=== PATIENT | male | born 1985 | race Hispanic/Latino ===

== ENCOUNTER 2017-06-07 05:43 | Inpatient (IN) | payer OTHER ==
[~2017-06-07] VITALS: Ht 172.7 cm; Wt 149.7 kg
--- NOTE | 2017-06-07 07:03 | ED GENERAL ADULT ---
History of Present Illness General Chief Complaint: General Adult Stated Complaint: " TONSILS ARE SWOLLEN DIFF.BREATHING, SPO2 96% " Source: patient Exam Limitations: no limitations Vital Signs & Intake/Output Vital Signs & Intake/Output Vital Signs Date Time Temp Pulse Resp B/P B/P Pulse O2 O2 Flow FiO2 Mean Ox Delivery Rate 06/08 915 98.0 103 20 169/108 89 Nasal 2.0L Cannula 06/08 839 99.0 109 20 143/89 85 Room Air 06/07 0710 97.0 118 138/99 06/07 0554 98.1 114 139/71 96 Room Air Allergies Coded Allergies: No Known Allergies (06/07/17) Reconcile Medications No Known Home Medications Triage Note: RECEIVED PT TO [facility] B WITH CO SWOLLEN NECK/THROAT- STARTED 2 WEEKS AGO WENT AWAY THEN RETURNED WORSE - DIFFICULTY TALKING - SWALLOWING - DIFFICULTY SLEEPING - Triage Nurses Notes Reviewed? yes Onset: Gradual Duration: day(s): Timing: recent history HPI: 06/07/17 31-year-old male presents to the emergency department with severe sore throat. The patient states that he's had a sore throat develop over the past 4 days. He has trouble swallowing and barely gets liquids down. No significant past medical history. Strep test was positive. Past History Travel History Traveled to [place] past 21 day No Medical History Any Pertinent Medical History? see below for history Neurological: NONE EENT: NONE Cardiovascular: NONE Respiratory: NONE Gastrointestinal: NONE Hepatic: NONE Renal: NONE Musculoskeletal: NONE Psychiatric: NONE Endocrine: NONE Surgical History Surgical History: non-contributory Psychosocial History What is your primary language Hungarian Tobacco Use: Current Daily Use Daily Tobacco Use Amount/Type: => 5 Cigarettes daily Family History Hx Contributory? No Review of Systems Review of Systems Constitutional: Denies: fever. EENTM: Denies: visual changes. Respiratory: Denies: short of breath. Cardiovascular: Denies: chest pain. GI: Denies: abdominal pain. Genitourinary: Reports: no symptoms. Musculoskeletal: Reports: no symptoms. Skin: Reports: no symptoms. Neurological/Psychological: Reports: no symptoms. Hematologic/Endocrine: Reports: no symptoms. Immunologic/Allergic: Reports: no symptoms. Physical Exam Physical Exam General Appearance: alert, awake, anxious, moderate distress Head: atraumatic, normal appearance Eyes: Bilateral: normal appearance, PERRL, EOMI. Ears, Nose, Throat: pharyngeal erythema, tonsillar swelling Neck: supple Respiratory: normal breath sounds, chest non-tender, no respiratory distress Cardiovascular: regular rate/rhythm Peripheral Pulses: 4+ radial (R), 4+ radial (L) Gastrointestinal: soft, non-tender Back: normal range of motion Extremities: no edema Neurologic/Psych: no motor/sensory deficits, awake, alert, oriented x 3 Skin: intact, normal color, warm/dry Core Measures ACS in differential dx? No CVA/TIA Diagnosis: No Sepsis Present: No Sepsis Focused Exam Completed? No Progress Differential Diagnoses I considered the following diagnoses in my evaluation of the patient: [ Retropharyngeal abscess, peritonsillar abscess, strep pharyngitis, angioedema] Plan of Care: Orders Procedure Date/time Status Full Liquid Diet 06/07 L Active Patient Data 06/07 0935 Active ED Holding Orders 06/07 09 Active ED Holding Orders 06/07 09 Active Admit to inpatient 06/07 0926 Active Vital Signs 06/07 09 Active Code Status 06/07 09 Active Add-on Test (ER Only) 06/07 0914 Active MONOSPOT TEST 06/07 0709 Complete COMPREHENSIVE METABOLIC PANEL 06/07 0709 Complete CBC WITHOUT DIFFERENTIAL 06/07 0709 Complete THROAT CULTURE W/QUICK STREP 06/07 0641 Active Laboratory Tests 06/07/17 0722: Anion Gap 15, Estimated GFR > 60, BUN/Creatinine Ratio 13.3, Glucose 111 H, Calcium 9.4, Total Bilirubin 0.7, AST 17, ALT 26, Alkaline Phosphatase 98, Total Protein 8.8 H, Albumin 4.2, Globulin 4.6 H, Albumin/Globulin Ratio 0.9 L, CBC w Diff MAN DIFF ORDERED, RBC 5.49, MCV 80.5, MCH 26.1 L, MCHC 32.5 L, RDW 16.1 H, MPV 7.9, Gran % 79.7 H, Lymphocytes % 9.2 L, Monocytes % 10.8 H, Eosinophils % 0.1, Basophils % 0.2, Absolute Granulocytes 23.0 H, Segmented Neutrophils 74, Band Neutrophils 3, Absolute Lymphocytes 2.7, Lymphocytes 18 L, Monocytes 4, Absolute Monocytes 3.1 H, Eosinophils 1, Absolute Eosinophils 0, Absolute Basophils 0.1, Platelet Estimate INCREASED, Normocytic RBCs VERIFIED, Normochromic RBCs VERIFIED 06/07/17 0709: Infectious [place] Titer NEGATIVE Initial ED EKG: normal intervals Departure Departure Disposition: STILL A PATIENT Condition: Stable Clinical Impression Primary Impression: Pharyngitis Referrals: Patient Has No Primary Care Dr (PCP/Family) Departure Forms: Customer Survey General Discharge Information Prescriptions: Current Visit Scripts No Known Home Medications Comments 06/07/17 The patient is being admitted to the hospital for IV antibiotics and ENT consultation. I spoke to Dr. Davina Lagunas who will see the patient today in the hospital. PATIENT: HIRAM HILLMAN PRESENT AGE: 31 PATIENT ACCOUNT NO: [id number] : 85 LOCATION: [facility] ORDERING PHYSICIAN: Darell Le MD SERVICE DATE: 06/07/17 EXAM TYPE: CAT - CT NECK W IV CONTRAST EXAMINATION: CT SOFT TISSUE NECK WITH CONTRAST CLINICAL INFORMATION: Sore throat for 2 weeks. Assess for retropharyngeal abscess. COMPARISON: None. TECHNIQUE: Following the intravenous administration of 100 mL of Ultravist 300, helical imaging was performed in the axial plane with generation of coronal and sagittal reformatted images. Imaging is slightly degraded by patient swallowing motion artifact. DLP: 510.5 mGy-cm. FINDINGS: There is asymmetric fullness of the palatine tonsils, larger on the left. There is an area of relative low attenuation in the left tonsil which measures 1.6 x 1.6 x 2.1 cm, which may be consistent with an evolving abscess. There is mild distortion of the airway in the oropharynx. There are multiple enlarged lymph nodes in the neck bilaterally, most prominent on the left in the level IIA/IIB region measuring up to 3 cm. The parotid glands are homogeneous in attenuation. The submandibular glands are normal. No The laryngeal structures are normal. The parapharyngeal fat is preserved. There is normal opacification of the vascular structures. No other extra mucosal soft tissue mass or fluid collection is seen. No retropharyngeal fluid collection is seen. The thyroid gland is normal. The superior mediastinum is unremarkable. The lung apices are clear. The mastoid air cells are well-aerated. There is complete opacification of the right maxillary sinus with thickened sinuses díaz consistent with chronic disease. There is also mucoperiosteal thickening in the bilateral ethmoid sinuses. The temporomandibular joints are normal. No periapical disease is identified. There are no acute osseous abnormalities. The imaged portions of the brain parenchyma are unremarkable. IMPRESSION: 1. The palatine tonsils are enlarged, more prominent on the left. There may be a developing abscess in the left palatine tonsil. In addition there is significant bilateral cervical lymphadenopathy, most prominent on the left. 2. There is complete opacification of the right maxillary sinus with thickened sinus díaz, consistent with chronic sinus disease. DICTATED BY: Keith Hemphill MD DATE/TIME DICTATED:06/07/17824 CARPET REPAIRER:DAVE DATE/TIME TRANSCRIBED:06/07/17824 CONFIDENTIAL, DO NOT COPY WITHOUT APPROPRIATE AUTHORIZATION. <Electronically signed in Other Vendor System> SIGNED BY: Keith Hemphill MD 06/07/17854 Admission Note Spoke With: Mikala Guadarrama MD Documentation of Exam: Documentation of any treatments & extenuating circumstances including Concerns Regarding Discharge (functional status, medication knowledge or non-compliance, living conditions, etc.) that warrant an admission rather than observation: [ Patient needs admission for IV antibiotics and ENT consultation] Critical Care Note Critical Care Note Critical Care Time: 30-74 min
[2017-06-07 07:36] LABS: ABSOLUTE BASOPHIL COUNT 0.1 /CUMM (0.0-0.2); ABSOLUTE EOSINOPHIL COUNT 0 /CUMM (0.0-0.7); ABSOLUTE LYMPH COUNT 2.7 /CUMM (1.2-3.4); ABSOLUTE MONOCYTE COUNT 3.1 /CUMM (0.10-0.60); BASOPHIL % 0.2 % (0.0-2.0); EOSINOPHIL % 0.1 % (0-5); GRANULOCYTE % 79.7 % (42.2-75.2); HEMATOCRIT 44.1 % (42-52); MEAN CORPUSCULAR HGB 26.1 PG (27.0-31.0); MEAN CORPUSCULAR HGB CONC 32.5 G/DL (33.0-37.0); MEAN CORPUSCULAR VOLUME 80.5 FL (80.0-94.0); MEAN PLATELET VOLUME 7.9 FL (7.4-10.4); PLATELET COUNT 473 /CUMM (130-400); RBC DISTRIBUTION WIDTH 16.1 % (11.5-14.5); RED BLOOD CELL CT 5.49 /CUMM (4.70-6.10); WHITE BLOOD CELL COUNT 28.9 /CUMM (4.8-10.8)
--- NOTE | 2017-06-07 08:55 | CT SCAN REPORT ---
EXAMINATION: CT SOFT TISSUE NECK WITH CONTRAST CLINICAL INFORMATION: Sore throat for 2 weeks. Assess for retropharyngeal abscess. COMPARISON: None. TECHNIQUE: Following the intravenous administration of 100 mL of Ultravist 300, helical imaging was performed in the axial plane with generation of coronal and sagittal reformatted images. Imaging is slightly degraded by patient swallowing motion artifact. DLP: 510.5 mGy-cm. FINDINGS: There is asymmetric fullness of the palatine tonsils, larger on the left. There is an area of relative low attenuation in the left tonsil which measures 1.6 x 1.6 x 2.1 cm, which may be consistent with an evolving abscess. There is mild distortion of the airway in the oropharynx. There are multiple enlarged lymph nodes in the neck bilaterally, most prominent on the left in the level IIA/IIB region measuring up to 3 cm. The parotid glands are homogeneous in attenuation. The submandibular glands are normal. No The laryngeal structures are normal. The parapharyngeal fat is preserved. There is normal opacification of the vascular structures. No other extra mucosal soft tissue mass or fluid collection is seen. No retropharyngeal fluid collection is seen. The thyroid gland is normal. The superior mediastinum is unremarkable. The lung apices are clear. The mastoid air cells are well-aerated. There is complete opacification of the right maxillary sinus with thickened sinuses díaz consistent with chronic disease. There is also mucoperiosteal thickening in the bilateral ethmoid sinuses. The temporomandibular joints are normal. No periapical disease is identified. There are no acute osseous abnormalities. The imaged portions of the brain parenchyma are unremarkable. IMPRESSION: 1. The palatine tonsils are enlarged, more prominent on the left. There may be a developing abscess in the left palatine tonsil. In addition there is significant bilateral cervical lymphadenopathy, most prominent on the left. 2. There is complete opacification of the right maxillary sinus with thickened sinus díaz, consistent with chronic sinus disease.
--- NOTE | 2017-06-07 09:45 | History & Physical ---
Ramila Bunch 06/07/17 0941: General Information and HPI MD Statement: I have seen and personally examined HIRAM HILLMAN and documented this H&P. The patient is a 31 year old M who presented with a patient stated chief complaint of [worsening throat pain]. Source of Information: patient Exam Limitations: no limitations History of Present Illness: 31-year-old male with no past medical history presents to the ER with chief complaint pain, andswelling in his neck that started about 1 week ago with worsening difficulty swallowing as well as sleeping. According to the patient he first developed a sore throat which was associated with purulent discharge and his tonsillar area on May 07. He said that his symptoms subsided a couple of days later without taking any medications or seeing a primary care physician. It was not until last Wednesday that he started to experience worsening sore throat, difficulty swallowing and pain on swallowing. He also started to notice swelling on the left side of his neck which progressively got worse Wednesday into Wednesday. He also endorses having difficulty taking her catching a deep breath and has not slept in almost 3 days. He does endorse mild pooling of saliva in his mouth. He denies any fevers, chills. He states that he took Motrin but with little effect. He does endorse having his daughter who was sick with an upper respiratory tract infection a few weeks ago. Patient denies any chest pain, shortness of breath, nausea, vomiting , diarrhea, constipation, abdominal pain, headache, any sinusitis-like symptoms. Allergies/Medications Allergies: Coded Allergies: No Known Allergies (06/07/17) Home Med list No Known Home Medications Past History Travel History Traveled to [place] past 21 day No Medical History Neurological: NONE EENT: NONE Cardiovascular: NONE Respiratory: NONE Gastrointestinal: NONE Hepatic: NONE Renal: NONE Musculoskeletal: NONE Psychiatric: NONE Endocrine: NONE Surgical History Surgical History: none Past Family/Social History Family History Relations & Conditions if any MOTHER FH: breast cancer FATHER FH: diabetes mellitus BROTHER FH: hypothyroidism Psychosocial History Who Do You Live With? self ETOH Use: denies use Illicit Drug Use: denies illicit drug use Functional Ability ADLs Independent: dressing, eating, toileting, bathing. Sexual History Sexually Active Yes # of partners 1 Sexual Orientation Heterosexual Employment History Employment Employed Review of Systems Review of Systems Constitutional: Denies: chills, fever, malaise, weakness. EENTM: Denies: visual changes. Cardiovascular: Denies: chest pain, orthopena, palpitations, peripheral edema. Respiratory: Reports: stridor. Denies: cough, orthopnea, short of breath, wheezing. GI: Denies: abdominal pain, constipation, diarrhea, nausea, vomiting. Genitourinary: Reports: no symptoms. Musculoskeletal: Reports: no symptoms. Neurological/Psychological: Denies: headache, numbness, tingling, tremors. Immunologic/Allergic: Reports: lymphadenopathy. Exam & Diagnostic Data Last 24 Hrs of Vital Signs/I&O Vital Signs Date Time Temp Pulse Resp B/P B/P Pulse O2 O2 Flow FiO2 Mean Ox Delivery Rate 06/08 915 98.0 103 20 169/108 89 Nasal 2.0L Cannula 06/07 0840 99.0 109 20 143/89 85 Room Air 06/07 0710 97.0 118 138/99 06/07 0554 98.1 114 139/71 96 Room Air Last 24 Hrs of Labs/Johnny: Laboratory Tests 06/07/17 0722: Anion Gap 15, Estimated GFR > 60, BUN/Creatinine Ratio 13.3, Glucose 111 H, Calcium 9.4, Total Bilirubin 0.7, AST 17, ALT 26, Alkaline Phosphatase 98, Total Protein 8.8 H, Albumin 4.2, Globulin 4.6 H, Albumin/Globulin Ratio 0.9 L, CBC w Diff MAN DIFF ORDERED, RBC 5.49, MCV 80.5, MCH 26.1 L, MCHC 32.5 L, RDW 16.1 H, MPV 7.9, Gran % 79.7 H, Lymphocytes % 9.2 L, Monocytes % 10.8 H, Eosinophils % 0.1, Basophils % 0.2, Absolute Granulocytes 23.0 H, Segmented Neutrophils 74, Band Neutrophils 3, Absolute Lymphocytes 2.7, Lymphocytes 18 L, Monocytes 4, Absolute Monocytes 3.1 H, Eosinophils 1, Absolute Eosinophils 0, Absolute Basophils 0.1, Platelet Estimate INCREASED, Normocytic RBCs VERIFIED, Normochromic RBCs VERIFIED 06/07/17 0709: Infectious [place] Titer NEGATIVE Diagnostic Data Other Results SERVICE DATE: 06/07/17 EXAM TYPE: CAT - CT NECK W IV CONTRAST FINDINGS: There is asymmetric fullness of the palatine tonsils, larger on the left. There is an area of relative low attenuation in the left tonsil which measures 1.6 x 1.6 x 2.1 cm, which may be consistent with an evolving abscess. There is mild distortion of the airway in the oropharynx. There are multiple enlarged lymph nodes in the neck bilaterally, most prominent on the left in the level IIA/IIB region measuring up to 3 cm. The parotid glands are homogeneous in attenuation. The submandibular glands are normal. No The laryngeal structures are normal. The parapharyngeal fat is preserved. There is normal opacification of the vascular structures. No other extra mucosal soft tissue mass or fluid collection is seen. No retropharyngeal fluid collection is seen. The thyroid gland is normal. The superior mediastinum is unremarkable. The lung apices are clear. The mastoid air cells are well-aerated. There is complete opacification of the right maxillary sinus with thickened sinuses díaz consistent with chronic disease. There is also mucoperiosteal thickening in the bilateral ethmoid sinuses. The temporomandibular joints are normal. No periapical disease is identified. There are no acute osseous abnormalities. The imaged portions of the brain parenchyma are unremarkable. IMPRESSION: 1. The palatine tonsils are enlarged, more prominent on the left. There may be a developing abscess in the left palatine tonsil. In addition there is significant bilateral cervical lymphadenopathy, most prominent on the left. 2. There is complete opacification of the right maxillary sinus with thickened sinus díaz, consistent with chronic sinus disease. Assessment/Plan Assessment: 31-year-old male with no past medical history presents to the ER with chief complaint pain in his leg quite throughout that started about 2 weeks ago with worsening difficulty swallowing as well as sleeping. Vitals at the time of admission blood pressure 139/71, respiratory rate of 20, T -max of 99 tachycardic to 114 with an O2 saturation of 85 on room air. Labs pertinent for leukocytosis with a white blood cell count of 28,900, H&H 14.3/44.1 and MCV of 80.5 with a platelet count of 473,000. Serum chemistries reveal a sodium of 139, potassium 4.4, bicarb of 28, anion gap of 15, BUN 8 with a creatinine of 0.6. LFTs unremarkable with an AST/ALT of 70/26, alk phos of 98. Infectious mono titer was negative. CT of the neck showed enlarged palatine tonsils, more prominent on the left with developing abscess in the left palatine tonsil with significant bilateral cervical lymphadenopathy left more so than right. There is also complete opacification of the right maxillary sinus with thickened sinus díaz consistent with chronic sinus disease. The ER patient received 50 mg of IV Decadron 1 and ampicillin 3000 mg IV 1. Assessment and plan Admit patient to ICU for closer monitoring. # Sepsis and acute hypoxemic repsiratory failure 2/2 peritonsillar abscess from GB Strep We will keep patient n.p.o. for now in the event ENT decides to do I&D at bedside. Spoke with Dr. Larry will be here this afternoon to evaluate the patient. Meanwhile maintain on aspiration precautions, provide supplemental oxygen to maintain saturations greater than 95% - Start IV Unasyn 3000 mg every 6 hrs Of note patient received steroids in the ER however it is more so for pain and there is limited data to suggest that it helps with the inflammation For now we will continue on dexamethasone 4 mg q. 8 IV Continue to monitor vitals every hour, and watch for signs of impending respiratory failure F/U BCX2, and lactic acid Follow-up ENT recommendation DVT prophylaxis On Alps given anticipation of I&D by ENT Diet N.p.o. CODE STATUS Full As Ranked By This Provider Problem List: 1. Peritonsillar abscess Core Measures/Misc (11/08) Acute Coronary Syndrome ACS Diagnosis: No Congestive Heart Failure Congestive Heart Failure Diagnosis No Cerebrovascular Accident CVA/TIA Diagnosis: No VTE (View Protocol) VTE Risk Factors Age>40 No Mechanical VTE Prophylaxis d/t N/A MechProphylax Ordered No VTE Pharm Prophylaxis d/t NA PharmProphylax ordered Sepsis (View protocol) Sepsis Present: No Resident Review Statement Resident Statement: admitted by resident Liu Berkowitz MD 06/07/17 1354: Attending MD Review Statement Attending Statement Attending MD Statement: examined this patient, discuss w/resident/PA/NEWBORN HEARING SCREENER, agreed w/resident/PA/NEWBORN HEARING SCREENER, reviewed EMR data (avail), discussed with nursing, reviewed images, amended to note Attending Assessment/Plan: The patient is a 31 yo male w/o significant PMH who presented in the ED with throat pain and swelling that began 05/07 and subsided. For the last 6 days he has had worsening of the throat pain and began having difficulty swallowing. He also was having difficulty speaking and swallowing his saliva. Some dyspnea noted. He denied fever or chills, chest pain or palpitations. In the ED he was noted to have purulent tonsils and + strep with CT showing early tonsillar abscess. At the time of my exam he had some stridor and had difficult time speaking and swallowing. He had been given Unasyn and steroids in the ED. ENT has not yet seen. Physical Exam: VS: T 98.0-99, P 118-103, R 20, BP 139/71-169/108, PO 96-85-89% on 2L HEENT: eyes- PERRLA, EOMI michael- + significant posterior pharyngeal swelling/erythema, tonsillar swelling with exudate Neck: + cervical adenopathy bilateral Chest: some inspiratory stridor, however lungs clear Cor: tach, regular, nl S1, S2 w/o murm Abd: BS+, soft, NT Ext: no edema, good capillary filling Neuro: alert & oriented x 3, non-focal exam Labs/Tests- as above Impression/Plan: #Strep Pharyngitis/Tonsillitis with Early Left Tonsillar Abscess- on CT. At the time of my exam has inspiratory stridor and hypoxemia. Concern regarding impending airway obstruction. He has received IV Unasyn and steroids in ED. Plan: Admit to ICU for close respiratory monitoring - if decompensates - may need trach. Stat/Urgent ENT evaluation- ? drainage. Continue Unasyn. Check Lactate/Cultures- r/o sepsis. Check EKG, no heparin (was initially ordered, but not given)- use ALPS. #Acute Hypoxic Respiratory Failure- note pulse ox decreased due to partial airway occlusion. Plan: Agree with nasal oxygen and close monitoring. #Leukocytosis- WBC 28K- c/w significant infection. Plan: Will follow WBC on antibiotics.
[2017-06-07 10:34] LABS: PT 16.9 SEC (9.4-12.5)
--- NOTE | 2017-06-07 12:46 | RADIOLOGY REPORT ---
EXAMINATION: XR PORTABLE CHEST CLINICAL INFORMATION: Preop for drainage of peritonsillar abscess. Rule out pneumonia. COMPARISON: None TECHNIQUE: Portable AP semierect view of the chest was obtained. FINDINGS: EKG leads overlie the chest. The cardiomediastinal silhouette is borderline enlarged. Low lung volumes are seen with crowding of the bronchovascular lung markings in the right lung base. No focal consolidation, effusion or pneumothorax is seen. Bony structures are unremarkable. IMPRESSION: Low lung volumes. Borderline cardiomegaly. No acute pulmonary process.
--- NOTE | 2017-06-07 13:54 | Admission Certification ---
Admission Certification Certification Statement - As attending physician, I certify that at the time of - admission, based on clinical presentation, severity of - symptoms, need for further diagnostic testing and - therapeutic interventions, and risk of adverse outcomes - without in-hospital treatment, in my clinical assessment, - this patient requires an acute hospital stay for a minimum - of two nights or longer. I have also considered psychsocial - factors such as support system, advanced age, financial - issues, cognitive issues, and failed out-patient treatments, - past re-admission history, safety of patient, and lack of - compliance as applicable. Specific rationale supporting this admission is: The patient presents with throat pain and swelling, respiratory stridor, early tonsillar abscess on CT with significant neck swelling. WBC 28K, + strep culture , low oxygen sat. Needs ICU admit for close respiratory observation - ENT consult RIAN- ? drainage, IV Unasyn, Steroids, oxygen.
--- NOTE | 2017-06-07 15:02 | Cons- Ear,Nose&Throat ---
General Information and HPI Consulting Request Date of Consult: 06/07/17 Requested By: Liu Berkowitz MD Reason for Consult: Throat pain and swelling Source of Information: patient Exam Limitations: no limitations History of Present Illness: 31-year-old male with no past medical history presented to ER earlier this morning with throat pain and swelling. Throat pain started about a week ago and has gotten progressively worse. Patient developed difficulty with swallowing. Over the last 3 days she had also difficulty sleeping due to throat obstruction. She also noticed to have neck swelling, tenderness and pain. According to the patient he first developed a sore throat which was associated with purulent discharge and his tonsillar area on May 07. He said that his symptoms subsided a couple of days later without taking any medications or seeing a primary care physician. It was not until last Wednesday that he started to experience recurrence sore throat worsening, followed by difficulty swallowing and pain on swallowing. He also started to notice swelling on the left side of his neck which progressively got worse Wednesday into Wednesday. He also endorses having difficulty taking her catching a deep breath and has not slept in almost 3 days. He does endorse mild pooling of saliva in his mouth. He denies any fevers, chills. He states that he took Motrin but with little effect. He does endorse having his daughter who was sick with an upper respiratory tract infection a few weeks ago. Patient denies any chest pain, shortness of breath, nausea, vomiting, diarrhea, constipation, abdominal pain, headache, any sinusitis-like symptoms. Allergies/Medications Allergies: Coded Allergies: No Known Allergies (06/07/17) Home Med List: No Known Home Medications Current Medications: Current Medications Sig/[place] Start time Last Medication Dose Route Stop Time Status Admin Acetaminophen 1,000 MG Q6P PRN 06/07 1045 AC N/A 1 UNIT IV Ampicillin Sodium/ 3,000 MG Q6H 06/07 1300 AC Sulbactam Sodium IV Sodium Chloride 100 ML Ampicillin Sodium/ 0 .STK-MED ONE 06/07 0735 DC Sulbactam Sodium .ROUTE Ampicillin Sodium/ 3,000 MG ONCE ONE 06/07 0730 DC 06/07 Sulbactam Sodium IV 06/07 0759 0748 Sodium Chloride 100 ML Dexamethasone 4 MG Q8 06/07 1400 AC Dextrose/Water 50 ML IV Dexamethasone 15 MG ONCE ONE 06/07 0700 DC 06/07 IV 06/07 0701 0659 Heparin Sodium 5,000 UNIT Q8 06/07 1400 CAN (Porcine) SC Sodium Chloride 1,000 ML Q10H 06/07 1100 AC 06/07 IV 06/08 1659 1120 Past History Medical History Neurological: NONE EENT: NONE Cardiovascular: NONE Respiratory: NONE Gastrointestinal: NONE Hepatic: NONE Renal: NONE Musculoskeletal: NONE Psychiatric: NONE Endocrine: NONE Surgical History Pertinent Surgical History: 1 Family History Relations & Conditions If Any: MOTHER FH: breast cancer FATHER FH: diabetes mellitus BROTHER FH: hypothyroidism Psychosocial History Who Do You Live With? self Primary Language: Vincentian ETOH Use: denies use Illicit Drug Use: denies illicit drug use Functional Ability ADLs Independent: dressing, eating, toileting, bathing. Employment History Employment: Employed Review of Systems Review of Systems: Noncontributory Exam & Diagnostic Data Vital Signs and I&O Vital Signs Date Time Temp Pulse Resp B/P B/P Pulse O2 O2 Flow FiO2 Mean Ox Delivery Rate 06/07 1141 160/60 06/07 1109 97.0 110 20 96 Nasal 2.0L Cannula 06/07 0916 98.0 103 20 169/108 89 Nasal 2.0L Cannula 06/07 0840 99.0 109 20 143/89 85 Room Air 06/07 0710 97.0 118 138/99 06/07 0554 98.1 114 139/71 96 Room Air Physical Exam: Well-developed, well-nourished male with mild distress Head: normocephalic, atraumatic Ears: Canals- clear; Tympanic Membranes- clear Nose: Septum-related to the left ; Turbinates- hypertrophy, edema, erythema ; Airway-purulent drainage on the right Oral cavity: Mucosa- clear Oropharynx: Tonsils 4+, kissing, exudates, erythema ; Posterior wall-unable to visualize Neck: Enlarged upper cervical lymph nodes, mildly tender Fiberoptic laryngoscopy: Fiberoptic scope inserted via the right nostril Nasal fossa, rightpurulent drainage; turbinates-edema, erythema Nasopharynx: Septum with hypertrophy with almost complete obstruction of the nasopharynx Hypopharynx: Base of tongueclear; vallecularclear ; Piriform sinuses-Clear; posterior wall-clear; mucosa-clear Larynx: Epiglottis- intact; vocal cords-mobile; posterior commissure-clear Esophageal inlet-intact CBC: WBC 28.9 CT neck 06/07/2017: 1. Tonsils markedly enlarged ; asymmetric fullness of the palatine tonsils, larger on the left. There is an area of relative low attenuation in the left tonsil which measures 1.6 x 1.6 x 2.1 cm, which may be consistent with an evolving abscess. There is mild distortion of the airway in the oropharynx. 2. Adenoid hypertrophy with obstruction of the nasopharynx 3. Bilateral cervical adenopathy, most prominent on the left in the level IIA/ IIB region, up to 3 cm. 4. The parapharyngeal fat is preserved. No retropharyngeal fluid collection is seen. 5. Larynx is normal with patent airway 6. complete opacification of the right maxillary sinus with mucosal thickening within the right maxillary sinus consistent with chronic disease. There is also mucoperiosteal thickening in the bilateral ethmoid sinuses. Assessment/Plan Assessment/Plan Assessment/Plan Assessment: 1. Acute streptococcal tonsillitis 2. Tonsil and adenoid hypertrophy with obstruction of the nasopharyngeal and oropharyngeal airway 3. Acute sinusitis - right maxillary and bilateral ethmoid 4. Reactive cervical adenitis 5. Odynophagia 6. Dehydration 7. Sepsis 8. Obstructive sleep apnea secondary to tonsil and adenoid hypertrophy Plan 1. Admit patient to ICU for airway monitoring. 2. IV Unasyn 3 mg every 6 3. IV Decadron 4 mg every 8 4. Afrin nasal spray 3 puffs each nostril twice a day 3 days 5. CPAP to help with the upper airway obstruction 6. Monitor WBC 7. Monitor for possible evolving abscess on the left tonsil 8. Patient may have ice chips, if tolerates advance to clear liquids Consult Acknowledgment - Thank you for your consult request.
[2017-06-07 16:00] VITALS: BP 118/74
[2017-06-08] VITALS: BP 118/74
[2017-06-08 03:40] LABS: ABSOLUTE BASOPHIL COUNT 0 /CUMM (0.0-0.2); ABSOLUTE EOSINOPHIL COUNT 0 /CUMM (0.0-0.7); ABSOLUTE GRANULOCYTE CT 23.1 /CUMM (1.4-6.5); ABSOLUTE LYMPH COUNT 1.9 /CUMM (1.2-3.4); ABSOLUTE MONOCYTE COUNT 0.6 /CUMM (0.10-0.60); BASOPHIL % 0 % (0.0-2.0); EOSINOPHIL % 0.1 % (0-5); GRANULOCYTE % 89.9 % (42.2-75.2); HEMATOCRIT 44.5 % (42-52); MEAN CORPUSCULAR HGB 25.5 PG (27.0-31.0); MEAN CORPUSCULAR HGB CONC 31.3 G/DL (33.0-37.0); MEAN CORPUSCULAR VOLUME 81.3 FL (80.0-94.0); MEAN PLATELET VOLUME 8.2 FL (7.4-10.4); PLATELET COUNT 516 /CUMM (130-400); RBC DISTRIBUTION WIDTH 15.9 % (11.5-14.5); RED BLOOD CELL CT 5.48 /CUMM (4.70-6.10); WHITE BLOOD CELL COUNT 25.7 /CUMM (4.8-10.8)
--- NOTE | 2017-06-08 07:48 | PN- Housestaff ---
Yael SINGH,[facility] 06/08/17 0748: Subjective Follow-up For: 1. Sepsis from acute streptococcal tonsillitis 2. Tonsil and adenoid hypertrophy with obstruction of the nasopharyngeal and oropharyngeal airway 3. Acute sinusitis - right maxillary and bilateral ethmoid 4. Reactive cervical adenitis 5. Odynophagia 6. YE secondary to tonsil and adenoid hypertrophy Tele-Events Since Last Visit: No events overnight Subjective: Mr. del cid states that he has some improvement in his symptoms, throat pain is improved and he is able to swallow without difficulty, was able to eat his breakfast this morning. Still was unable to sleep last night because of the shortness of breath. Denies any fever/chills. Review of Systems Constitutional: Reports: no symptoms. EENTM: Reports: throat pain, throat swelling. Cardiovascular: Reports: no symptoms. Respiratory: Reports: short of breath. Gastrointestinal: Reports: no symptoms. Genitourinary: Reports: no symptoms. Musculoskeletal: Reports: no symptoms. Skin: Reports: no symptoms. Neurological/Psychological: Reports: no symptoms. Hematologic/Endocrine: Reports: no symptoms. Immunologic/Allergic: Reports: no symptoms. Objective Last 24 Hrs of Vital Signs/I&O Vital Signs Date Time Temp Pulse Resp B/P B/P Pulse O2 O2 Flow FiO2 Mean Ox Delivery Rate 06/08 1200 94 Room Air Room Air 06/08 0800 95 Room Air Room Air 06/08 0800 98.1 84 24 100/80 97 Room Air Room Air 06/08 0400 94 Nasal 3.0L Cannula 06/08 0000 97 Aerosol 35% Mask 06/08 0000 9834.0 80 32 118/74 97 Aerosol 35% Mask 06/07 2000 99 Nasal 2.0L Cannula 06/07 1600 97.8 122 20 118/74 95 Nasal 2.0L Cannula 06/07 1600 95 Nasal 2.0L Cannula 06/07 1330 95 Nasal 2.0L Cannula Intake & Output 06/08 1600 06/08 0800 06/08 0000 Intake Total 1664 1580 Output Total 1100 900 Balance 564 680 Intake, IV 824 1100 Intake, Oral 840 480 Output, Urine 1100 900 Physical Exam General Appearance: Alert, Oriented X3, Cooperative, No Acute Distress Skin: No Rashes, No Breakdown HEENT: Atraumatic, PERRLA, EOMI, Mucous Membr. moist/pink, enlarged and erythematous tonsils without any purulent drainage Neck: Supple, No JVD Cardiovascular: Regular Rate, Normal S1, Normal S2 Lungs: Normal Air Movement, Mild wheezing bilaterally Abdomen: Normal Bowel Sounds, Soft, No Tenderness Extremities: No Clubbing, No Cyanosis, No Edema Current Medications: Current Medications Sig/[place] Start time Last Medication Dose Route Stop Time Status Admin Acetaminophen 1,000 MG Q6P PRN 06/07 1045 AC N/A 1 UNIT IV Ampicillin Sodium/ 3,000 MG Q6H 06/07 2200 AC 06/08 Sulbactam Sodium IV 1018 Sodium Chloride 100 ML Ampicillin Sodium/ 3,000 MG Q6H 06/07 1300 DC 06/07 Sulbactam Sodium IV 1637 Sodium Chloride 100 ML Dexamethasone 4 MG Q8 06/07 1400 AC 06/08 Dextrose/Water 50 ML IV 0514 Heparin Sodium/ 25,000 UNIT Q24H 06/08 1015 DC Dextrose IV Dextrose/Water 500 ML Influenza Virus 0.5 ML ONCE ONE 06/07 2115 DC Vaccine IM 06/07 211 Oxymetazoline HCl 2 SPRAY BID 06/07 2100 AC 06/07 POLO 1642 Sodium Chloride 1,000 ML Q10H 06/07 1100 AC 06/07 IV 06/08 1659 2145 Last 24 Hrs of Lab/Johnny Results Last 24 Hrs of Labs/Mics: Laboratory Tests 06/08/17 0320: Troponin I < 0.01 06/08/17 0320: Anion Gap 14, Estimated GFR > 60, BUN/Creatinine Ratio 26.0 H, CBC w Diff MAN DIFF ORDERED, RBC 5.48, MCV 81.3, MCH 25.5 L, MCHC 31.3 L, RDW 15.9 H, MPV 8.2, Gran % 89.9 H, Lymphocytes % 7.5 L, Monocytes % 2.5, Eosinophils % 0.1, Basophils % 0, Absolute Granulocytes 23.1 H, Segmented Neutrophils 78 H, Band Neutrophils 6 H, Absolute Lymphocytes 1.9, Lymphocytes 10 L, Monocytes 4, Absolute Monocytes 0.6, Absolute Eosinophils 0, Absolute Basophils 0, Metamyelocytes 2 H, Platelet Estimate ADEQUATE, Normocytic RBCs VERIFIED, Normochromic RBCs VERIFIED 06/07/17 1600: Lactic Acid 0.9 Microbiology 06/07 1615 BLOOD: Blood Culture - RES 06/07 1353 BLOOD: Blood Culture - CAN Cancelled: SPECIMEN NOT RECEIVED IN LABORATORY 06/07 1300 UPPER RESP: Surveillance Culture - RECD Assessment/Plan Assessment: 31-year-old morbidly obese male with no past medical history presents to the ER with chief complaint pain in his leg quite throughout that started about 2 weeks ago with worsening difficulty swallowing as well as sleeping. Admit patient to ICU for closer monitoring due to the following; 1. Sepsis and acute hypoxemic repsiratory failure 2/2 acute streptococcal tonsillitis; Patient met SIRS criteria with HR of 114 and WBC count of 28.9. he received 2L of IV normal saline @ rate of 100ml/hr. Aggresive fluid hydration was not done as the patient clinically did not look septic with no organ damage, normal Lactic acid rleevl and also the blood pressure remained within normal range. 2. Tonsil and adenoid hypertrophy with obstruction of the nasopharyngeal and oropharyngeal airway 3. Acute sinusitis - right maxillary and bilateral ethmoid 4. Reactive cervical adenitis 5. Odynophagia - resolved 6. YE secondary to tonsil and adenoid hypertrophy * Continue IV Unasyn 3000 mg every 6 hrs * Continue on dexamethasone 4 mg q. 8 IV * CPAP/AutoPAP for YE secondary to tonsil and adenoid hypertrophy. Pt is morbidly obese with BMI of 50.2, might need outpatient sleep study to r/o YE. * Maintain on aspiration precautions * Provide supplemental oxygen to maintain saturations greater than 95% * Affrin Nasal [place] * TRC evaluation * Lactic acid < 1 * f/u final blood cultures * Rapid [place] test negative, EBV serology pending * Continue to monitor vitals every hour, and watch for signs of impending respiratory failure * Monitor WBC count * Follow-up ENT recommendation DVT prophylaxis; ALPS and S/C Lovenox Diet; Regular diet Patient is Full code Problem List: 1. Pharyngitis Pain Ratin Pain Location: Throat Pain Goal: Remain pain free Pain Plan: Pain Pathway Tomorrow's Labs & Rationales: CBC(leukocytosis, tonsillitis) Liu Berkowitz MD 06/08/17 1324: Attending MD Review Statement Attending Statement Attending MD Statement: examined this patient, discuss w/resident/PA/RV REPAIR TECHNICIAN, agreed w/resident/PA/RV REPAIR TECHNICIAN, reviewed EMR data (avail), amended to note Attending Assessment/Plan: The patient was seen and discussed with house staff. Significant decrease in throat/neck swelling at present. WBC remains elevated. Will continue antibiotics and follow. Await ENT follow-up.
[2017-06-08 08:00] VITALS: BP 100/80
--- NOTE | 2017-06-08 09:04 | Cons- CRCU ---
Alla Degroot 06/08/17 0900: General Information and HPI Consulting Request Date of Consult: 06/08/17 Requested By: Liu Hanson Reason for Consult: Peritonsillar abscess with and upper airway obstruction and Source of Information: patient Exam Limitations: no limitations History of Present Illness: Patient is 31-year-old current smoker, morbidly obese gentleman with no significant past medical history came in with chief complaint of severe sore throat, dysphagia and neck swelling for 5 days. Patient had sore throat around mid April where he was treated symptomatically with analgesics and lozenges and his symptom subsides on its own. Again last week he started having a sore throat, difficulty swallowing and I also noticed a swelling on the left side of his neck which Is worse progressively to the point that it is hard for him to sleep and he also he had difficulty breathing. Recently and he also noticing some drooling and his voice was getting muffled. Her 4 years old daughter at home also had strep throat. He denied any fever, chills, shortness of breath, chest pain, nausea, vomiting, any urinary or bowel complaints. He denied any history of asthma or COPD in the past. He denied any loud snoring, any choking or gasping for air while he is sleeping and never been worked up for obstructive sleep apnea. His vital signs on admission were temperature 98.1, pulse 114, respiratory rate 20, blood pressure 139/71 and he was saturating 96% on room air later on required 2 L nasal cannula oxygen to keep oxygen saturation more than 90%. Patient does desaturate which is not documented in the system too as 60s while lying down without oxygen during his hospital stay. His quick strep throat came back positive for beta strep group A, negative infectious mono titer, Shreyas-Hernandez virus IgM antibody, IgG antibody pending Labs on admission were W BC count 28.9, hemoglobin 14.3, hematocrit 44.1, platelet count 473, BUN 13, creatinine 0.5, lactic acid normal, negative troponins, Chest x-ray showed low lung volumes and borderline cardiomegaly with no acute pulmonary process CT neck showed palatine tonsils enlargement, more prominent on the left. There may be developing abscess of the left palatine tonsils in addition there were significant bilateral cervical lymphadenopathy most prominent on the left. She also there is complete opacification of the right maxillary sinus with thickened sinus díaz consistent with chronic sinus disease. Allergies/Medications Allergies: Coded Allergies: No Known Allergies (06/07/17) Home Med List: No Known Home Medications Current Medications: Current Medications Sig/[place] Start time Last Medication Dose Route Stop Time Status Admin Acetaminophen 1,000 MG Q6P PRN 06/07 1045 AC N/A 1 UNIT IV Ampicillin Sodium/ 3,000 MG Q6H 06/07 2200 AC 06/08 Sulbactam Sodium IV 0402 Sodium Chloride 100 ML Ampicillin Sodium/ 3,000 MG Q6H 06/07 1300 DC 06/07 Sulbactam Sodium IV 1637 Sodium Chloride 100 ML Dexamethasone 4 MG Q8 06/07 1400 AC 06/08 Dextrose/Water 50 ML IV 0514 Heparin Sodium 5,000 UNIT Q8 06/07 1400 CAN (Porcine) SC Influenza Virus 0.5 ML ONCE ONE 06/07 2115 DC Vaccine IM 06/07 211 Oxymetazoline HCl 2 SPRAY BID 06/07 2100 AC 06/07 POLO 1642 Sodium Chloride 1,000 ML Q10H 06/07 1100 AC 06/07 IV 06/08 1659 2145 Review of Systems Review of Systems Constitutional: Denies: chills, diaphoresis, fever, malaise. EENTM: Reports: throat pain, throat swelling. Denies: blurred vision, visual changes, ear discharge. Cardiovascular: Denies: chest pain, edema, orthopena. Respiratory: Reports: sputum production, stridor, wheezing. GI: Denies: abdominal pain, bloating, constipation. Genitourinary: Denies: discharge, dysuria, frequency. Musculoskeletal: Denies: back pain, gout, joint pain. Skin: Reports: see HPI. 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 Home Who Do You Live With? self Services at Home: None Primary Language: Icelandic Smoking Status: Current Everyday Smoker ETOH Use: denies use Illicit Drug Use: denies illicit drug use Functional Ability ADLs Independent: dressing, eating, toileting, bathing. Employment History Employment: Employed Exam & Diagnostic Data Last 24 Hrs of Vital Signs/I&O Vital Signs Date Time Temp Pulse Resp B/P B/P Pulse O2 O2 Flow FiO2 Mean Ox Delivery Rate 06/08 0400 94 Nasal 3.0L Cannula 06/08 0000 97 Aerosol 35% Mask 06/08 0000 9834.0 80 32 118/74 97 Aerosol 35% Mask 06/07 2000 99 Nasal 2.0L Cannula 06/07 1600 97.8 122 20 118/74 95 Nasal 2.0L Cannula 06/07 1600 95 Nasal 2.0L Cannula 06/07 1330 95 Nasal 2.0L Cannula 06/07 1141 160/60 06/07 1109 97.0 110 20 96 Nasal 2.0L Cannula 06/07 0916 98.0 103 20 169/108 89 Nasal 2.0L Cannula Intake & Output 06/08 1600 06/08 0800 06/08 0000 Intake Total 1664 1580 Output Total 1100 900 Balance 564 680 Intake, IV 824 1100 Intake, Oral 840 480 Output, Urine 1100 900 Physical Exam General Appearance: alert, awake, obese Head: atraumatic, normal appearance Eyes: Bilateral: PERRL, EOMI. Neck: supple, full range of motion, tonsil edema Respiratory: chest non-tender, wheezing Cardiovascular: regular rate/rhythm Gastrointestinal: soft, non-tender, no organomegaly Back: normal inspection Extremities: normal inspection, normal capillary refill, normal range of motion Skin: intact, normal color Last 48 Hrs of Labs/Johnny: Laboratory Tests 06/08/17 0320: Troponin I < 0.01 06/08/17 0320: Anion Gap 14, Estimated GFR > 60, BUN/Creatinine Ratio 26.0 H, CBC w Diff MAN DIFF ORDERED, RBC 5.48, MCV 81.3, MCH 25.5 L, MCHC 31.3 L, RDW 15.9 H, MPV 8.2, Gran % 89.9 H, Lymphocytes % 7.5 L, Monocytes % 2.5, Eosinophils % 0.1, Basophils % 0, Absolute Granulocytes 23.1 H, Segmented Neutrophils 78 H, Band Neutrophils 6 H, Absolute Lymphocytes 1.9, Lymphocytes 10 L, Monocytes 4, Absolute Monocytes 0.6, Absolute Eosinophils 0, Absolute Basophils 0, Metamyelocytes 2 H, Platelet Estimate ADEQUATE, Normocytic RBCs VERIFIED, Normochromic RBCs VERIFIED 06/07/17 1600: Lactic Acid 0.9 06/07/17 0722: Anion Gap 15, Estimated GFR > 60, BUN/Creatinine Ratio 13.3, Glucose 111 H, Lactic Acid 1.0, Calcium 9.4, Total Bilirubin 0.7, AST 17, ALT 26, Alkaline Phosphatase 98, Total Protein 8.8 H, Albumin 4.2, Globulin 4.6 H, Albumin/ Globulin Ratio 0.9 L, PT 16.9 H, INR 1.54 H, CBC w Diff MAN DIFF ORDERED, RBC 5.49, MCV 80.5, MCH 26.1 L, MCHC 32.5 L, RDW 16.1 H, MPV 7.9, Gran % 79.7 H, Lymphocytes % 9.2 L, Monocytes % 10.8 H, Eosinophils % 0.1, Basophils % 0.2, Absolute Granulocytes 23.0 H, Segmented Neutrophils 74, Band Neutrophils 3, Absolute Lymphocytes 2.7, Lymphocytes 18 L, Monocytes 4, Absolute Monocytes 3.1 H, Eosinophils 1, Absolute Eosinophils 0, Absolute Basophils 0.1, Platelet Estimate INCREASED, Normocytic RBCs VERIFIED, Normochromic RBCs VERIFIED 06/07/17 0709: Infectious Jewell Titer NEGATIVE 06/07/17 07: EBV Capsid Ag IgG Ab Pending, EBV Capsid Ag IgM Ab Pending, EBV Nuclear Ag IgG Ab Pending, EBV Interpretation Pending Diagnostic Data CXR Results IMPRESSION: Low lung volumes. Borderline cardiomegaly. No acute pulmonary process. Other Results CT NECK IMPRESSION: 1. The palatine tonsils are enlarged, more prominent on the left. There may be a developing abscess in the left palatine tonsil. In addition there is significant bilateral cervical lymphadenopathy, most prominent on the left. 2. There is complete opacification of the right maxillary sinus with thickened sinus díaz, consistent with chronic sinus disease. Assessment/Plan CRCU Impression/Plan: 31-year-old morbidly obese every day smoker came with worsening sore throat, left-sided neck swelling and difficulty swallowing 5-6 days and found to have positive beta strep group A and developing tonsillar abscess and was admitted to ICU for closer monitoring and given risk for upper airway obstruction due to massively enlarged tonsils and adenoids. Patient was admitted in ICU for the following issues Respiratory: Nocturnal hypoxia and impending upper respiratory airway obstruction due to massively enlarged tonsils and developing left tonsillar abscess -Patient was started on appropriate antibiotics Unasyn 3 g every 6 -Patient has significant leukocytosis to 28.9 on admission which slightly came down to 25.7. We were expecting to drop more than that but as he is also on steroids it may mass the actual count. Please continue monitoring WBC count daily -Please consult ENT regarding tonsillectomy sooner than later. -As patient was pooling saliva in his mouth and he is in her danger of aspiration while on CPAP he was not started on CPAP yesterday. As he is better today and no obvious saliva/drooling was observed today. We can try AutoPap on him that he can be rested during the day as well. Continue Decadron 4 mg every 8 hours for now Supplemental oxygen to keep oxygen saturation more than 90% -Patient should have outpatient sleep study to rule out obstructive sleep apnea ID- beta strep group A pharyngitis/developing tonsillar abscess -Continue Unasyn 3 g every 6 hours -Advised her WBC count daily -Patient remained afebrile Cardiovascular -Patient has cardiomegaly on chest x-ray and should have echocardiogram as outpatient currently stable Hematology Leukocytosis with bandemia most likely due to tonsillar abscess and beta strep group A pharyngitis -Monitor WBC count daily Metabolic Normal electrolytes Alimentary No complaints neurology No neurological deficit noted Consult Acknowledgment - Thank you for your consult request. Stu Chase MD 06/08/17 5668: Assessment/Plan CRCU Other Findings/Comments: Stu Cantrell M.D. have examined this patient, reviewed available EMR data, personally reviewed images, discussed with resident/PA/CHICKEN AND FISH CLEANER, discussed management plan with housestaff and nursing staff, discussed managment plan all of healthcare providers, discussed management plan with patient and/or family, agreed with resident/PA/CHICKEN AND FISH CLEANER. The past history and parts of the chart have been autopopulated. Impression 31 year old man acute streptococcal tonsillitis tonsil/adenoid hypertrophy with obstruction of the upper airway acute hypoxemic respiratory failure secondary to above possible underlying sleep apnea Plan -ENT follow up, including timing for surgical intervention -autopap for comfort -steroids, unasyn -supplemental o2 to reach spo2 goal >92% DVT prophylaxis at all times TTS 40 min Consult Acknowledgment - Thank you for your consult request.
--- NOTE | 2017-06-08 14:13 | PN- Ear, Nose & Throat ---
Subjective Subjective: Feeling better today voice still muffled breathing still obstructed able to swallow tolerated liqiuds well today Objective Vital Signs and I&Os Vital Signs Date Time Temp Pulse Resp B/P B/P Pulse O2 O2 Flow FiO2 Mean Ox Delivery Rate 06/08 1200 94 Room Air Room Air 06/08 0800 95 Room Air Room Air 06/08 0800 98.1 84 24 100/80 97 Room Air Room Air 06/08 0400 94 Nasal 3.0L Cannula 06/08 0000 97 Aerosol 35% Mask 06/08 0000 9834.0 80 32 118/74 97 Aerosol 35% Mask 06/07 2000 99 Nasal 2.0L Cannula 06/07 1600 97.8 122 20 118/74 95 Nasal 2.0L Cannula 06/07 1600 95 Nasal 2.0L Cannula Intake & Output 06/08 1600 06/08 0800 06/08 0000 06/07 1600 06/07 0800 06/07 0000 Intake Total 1664 1580 150 Output Total 1100 900 Balance 564 680 150 Intake, IV 824 1100 150 Intake, Oral 840 480 0 Number 1 Bowel Movements Output, Urine 1100 900 Patient 330 lb Weight Weight Bed scale Measurement Method Exam: oropharynx: tonsills 4+, kissing: left more prominant neck: upper adenopathy WBC 25.7, improved Assessment/Plan Assessment/Plan 1. Acute streptococcal tonsillitis 2. Tonsil and adenoid hypertrophy with obstruction of the nasopharyngeal and oropharyngeal airway 3. Acute sinusitis - right maxillary and bilateral ethmoid 4. Reactive cervical adenitis 5. Odynophagia- improved 6. Dehydration- resolved 7. Sepsis - improved 8. Obstructive sleep apnea secondary to tonsil and adenoid hypertrophy - patient dod not tolerate CPAP overall patient is better Plan 1. continue to observe in ICU for airway monitoring. 2. IV Unasyn 3 mg every 6 3. IV Decadron 4 mg every 8 4. Afrin nasal spray 3 puffs each nostril twice a day 3 days 5. BiPAP tonight to help with the upper airway obstruction 6. Monitor WBC 7. Monitor for possible evolving abscess on the left tonsil 8. Patient to continue with clear liquids, may advance to full fluids Core Measures Venous Thromboembolism VTE Risk Factors Age>40 No Mechanical VTE Prophylaxis d/t N/A MechProphylax Ordered No VTE Pharm Prophylaxis d/t NA PharmProphylax ordered Attending MD Review Statement Attending Statement Attending MD Statement: examined this patient, discuss w/resident/PA/APPLIED EXERCISE PHYSIOLOGIST
[2017-06-08 16:00] VITALS: BP 120/80
[2017-06-09] VITALS: BP 132/80
[2017-06-09 06:50] LABS: ABSOLUTE BASOPHIL COUNT 0.1 /CUMM (0.0-0.2); ABSOLUTE EOSINOPHIL COUNT 0 /CUMM (0.0-0.7); ABSOLUTE GRANULOCYTE CT 19.8 /CUMM (1.4-6.5); ABSOLUTE LYMPH COUNT 3.3 /CUMM (1.2-3.4); ABSOLUTE MONOCYTE COUNT 2.4 /CUMM (0.10-0.60); BASOPHIL % 0.4 % (0.0-2.0); EOSINOPHIL % 0 % (0-5); GRANULOCYTE % 77.2 % (42.2-75.2); HEMATOCRIT 40.9 % (42-52); MEAN CORPUSCULAR HGB 26.3 PG (27.0-31.0); MEAN CORPUSCULAR HGB CONC 32.3 G/DL (33.0-37.0); MEAN CORPUSCULAR VOLUME 81.3 FL (80.0-94.0); MEAN PLATELET VOLUME 8.2 FL (7.4-10.4); PLATELET COUNT 600 /CUMM (130-400); RBC DISTRIBUTION WIDTH 16.5 % (11.5-14.5); RED BLOOD CELL CT 5.03 /CUMM (4.70-6.10); WHITE BLOOD CELL COUNT 25.6 /CUMM (4.8-10.8)
[2017-06-09 08:00] VITALS: BP 128/58
--- NOTE | 2017-06-09 08:49 | PN- Housestaff ---
Yael SINGH,[facility] 06/09/17 0849: Subjective Follow-up For: 1. Sepsis from acute streptococcal tonsillitis 2. Tonsil and adenoid hypertrophy with obstruction of the nasopharyngeal and oropharyngeal airway 3. Acute sinusitis - right maxillary and bilateral ethmoid 4. Odynophagia - resolved 5. YE secondary to tonsil and adenoid hypertrophy Tele-Events Since Last Visit: No Overnight events Subjective: Patient sitting comfortably in bed, eating his breakfast. Says he does not have difficulty swallowing anymore and also his breathing has improved significantly. He was able to sleep for 4-5 hours last night because of the CPAP. Denies any fever/chills. Review of Systems Constitutional: Reports: no symptoms. EENTM: Reports: no symptoms, throat swelling. Cardiovascular: Reports: no symptoms. Respiratory: Reports: no symptoms. Gastrointestinal: Reports: no symptoms. Genitourinary: Reports: no symptoms. Musculoskeletal: Reports: no symptoms. Skin: Reports: no symptoms. Neurological/Psychological: Reports: no symptoms. Hematologic/Endocrine: Reports: no symptoms. Immunologic/Allergic: Reports: no symptoms. Objective Last 24 Hrs of Vital Signs/I&O Vital Signs Date Time Temp Pulse Resp B/P B/P Pulse O2 O2 Flow FiO2 Mean Ox Delivery Rate 06/09 0603 69 94 06/09 0400 95 CPAP 2.0L 06/09 0245 64 94 06/09 0011 110 99 06/09 0000 94 CPAP 2.0L 06/09 0000 98.1 88 26 132/80 94 CPAP 2.0L 06/08 2253 93 Room Air Room Air 06/08 1627 80 94 06/08 1600 96 CPAP 06/08 1600 97.2 72 26 120/80 92 CPAP 06/08 1454 77 97 Intake & Output 06/09 1600 06/09 0800 06/09 0000 Intake Total 954 1917 Output Total 600 850 Balance 354 1067 Intake, IV 714 837 Intake, Oral 240 1080 Number 2 Bowel Movements Output, Urine 600 850 Physical Exam General Appearance: Alert, Oriented X3, Cooperative, No Acute Distress Skin: No Rashes, No Breakdown HEENT: Atraumatic, PERRLA, EOMI, enlarged tonsils Neck: Supple, No JVD, No thryomegaly Cardiovascular: Regular Rate, Normal S1, Normal S2 Lungs: Clear to Auscultation, Normal Air Movement Abdomen: Normal Bowel Sounds, Soft, No Tenderness Extremities: No Clubbing, No Cyanosis, No Edema Current Medications: Current Medications Sig/[place] Start time Last Medication Dose Route Stop Time Status Admin Acetaminophen 1,000 MG Q6P PRN 06/07 1045 AC N/A 1 UNIT IV Ampicillin Sodium/ 3,000 MG Q6H 06/07 2200 AC 06/09 Sulbactam Sodium IV 1004 Sodium Chloride 100 ML Dexamethasone 4 MG Q8 06/07 1400 AC 06/09 Dextrose/Water 50 ML IV 0618 Oxymetazoline HCl 2 SPRAY BID 06/07 2100 AC 06/09 POLO 1004 Sodium Chloride 1,000 ML Q10H 06/07 1100 DC 06/08 IV 06/08 1659 1300 Last 24 Hrs of Lab/Johnny Results Last 24 Hrs of Labs/Mics: Laboratory Tests 06/09/17 0630: Anion Gap 11, Estimated GFR > 60, Glucose 136 H, Calcium 9.6, Phosphorus 4.3, Magnesium 2.3, Total Bilirubin 0.4, AST 23, ALT 40, Albumin 3.6, CBC w Diff NO MAN DIFF REQ, RBC 5.03, MCV 81.3, MCH 26.3 L, MCHC 32.3 L, RDW 16.5 H, MPV 8.2, Gran % 77.2 H, Lymphocytes % 13.0 L, Monocytes % 9.4 H, Eosinophils % 0, Basophils % 0.4, Absolute Granulocytes 19.8 H, Absolute Lymphocytes 3.3, Absolute Monocytes 2.4 H, Absolute Eosinophils 0, Absolute Basophils 0.1 Assessment/Plan Assessment: 31-year-old morbidly obese male with no past medical history presents to the ER with chief complaint pain in his leg quite throughout that started about 2 weeks ago with worsening difficulty swallowing as well as sleeping. Admit patient to ICU for closer monitoring due to the following; 1. Sepsis and acute hypoxemic repsiratory failure 2/2 acute streptococcal tonsillitis; resolved Patient met SIRS criteria with HR of 114 and WBC count of 28.9. He received 2L of IV normal saline @ rate of 100ml/hr. Aggresive fluid hydration was not done as the patient clinically did not look septic with no organ damage, normal Lactic acid level and also the blood pressure remained within normal range. 2. Tonsil and adenoid hypertrophy with obstruction of the nasopharyngeal and oropharyngeal airway 3. Acute sinusitis - right maxillary and bilateral ethmoid 4. Reactive cervical adenitis 5. Odynophagia - resolved 6. YE secondary to tonsil and adenoid hypertrophy * Continue IV Unasyn 3000 mg every 6 hrs * Decrease dexamethasone from 4 mg q. 8 to Q 12 * CPAP/AutoPAP for YE secondary to tonsil and adenoid hypertrophy. Pt is morbidly obese with BMI of 50.2, might need outpatient sleep study to r/o YE. * Maintain on aspiration precautions * Supplemental oxygen as needed to maintain saturations greater than 95% * Affrin Nasal Pinch * TRC evaluation * f/u final blood cultures - remains negative so far * Rapid Bibb test negative, EBV IGM negative but positive IgG suggesting previous infection. * Monitor WBC count * Follow-up ENT recommendation DVT prophylaxis; ALPS and S/C Lovenox Diet; Regular diet Patient is Full code Problem List: 1. Pharyngitis 2. Tonsillitis 3. Adenoiditis Pain Ratin Pain Location: Throat Pain Goal: Remain pain free Pain Plan: Pain Pathway Tomorrow's Labs & Rationales: CBC( tonsillitis) ICU Bundle Stu Chase MD 06/09/17 1038: Attending Review Statement Attending Statement Attending Statement: examined this patient, discuss w/resident/PA/MECHANICAL LEAD, agreed w/resident/PA/MECHANICAL LEAD, discussed with family, reviewed EMR data (avail), discussed with nursing, discussed with case mgmt, reviewed images, amended to note Attending Assessment/Plan: Stu Cantrell M.D. have examined this patient, reviewed available EMR data, personally reviewed images, discussed with resident/PA/MECHANICAL LEAD, discussed management plan with housestaff and nursing staff, discussed managment plan all of healthcare providers, discussed management plan with patient and/or family, agreed with resident/PA/MECHANICAL LEAD. The past history and parts of the chart have been autopopulated. Impression 31 year old man acute streptococcal tonsillitis tonsil/adenoid hypertrophy with obstruction of the upper airway improved acute hypoxemic respiratory failure secondary to above possible underlying sleep apnea Plan -ENT follow up, including timing for surgical intervention -autopap for comfort, outpatient sleep study -steroids, unasyn -supplemental o2 to reach spo2 goal >92% DVT prophylaxis at all times TTS 35 min dg to [facility] Liu Mason MD 06/09/17 1739: Attending MD Review Statement Attending Statement Attending MD Statement: examined this patient, discuss w/resident/PA/MECHANICAL LEAD, agreed w/resident/PA/MECHANICAL LEAD, reviewed EMR data (avail), discussed with nursing, discussed with case mgmt, amended to note Attending Assessment/Plan: The patient was seen and discussed with house staff, nursing and case management. RHODA application in progress. Significant improvement in breathing and swallowing noted. Used CPAP at night. WBC remains elevated at 25.6, however may be some component due to steroids. ENT follow-up appreciated. Begin taper of Decadron per ENT. Continue Unasyn and switch to Augmentin when WBC decreased. Plan is for eventual tonsillectomy.
--- NOTE | 2017-06-09 12:38 | PN- Ear, Nose & Throat ---
Subjective Subjective: Patient is feeling better Voice was muffled Swallowing better Breathing better Objective Vital Signs and I&Os Vital Signs Date Time Temp Pulse Resp B/P B/P Pulse O2 O2 Flow FiO2 Mean Ox Delivery Rate 06/09 0603 69 94 06/09 0400 95 CPAP 2.0L 06/09 0245 64 94 06/09 0011 110 99 06/09 0000 94 CPAP 2.0L 06/09 0000 98.1 88 26 132/80 94 CPAP 2.0L 06/08 2253 93 Room Air Room Air 06/08 1627 80 94 06/08 1600 96 CPAP 06/08 1600 97.2 72 26 120/80 92 CPAP 06/08 1454 77 97 Intake & Output 06/09 1600 06/09 0800 06/09 0000 06/08 1600 06/08 0800 06/08 0000 Intake Total 954 1917 1428 1664 1580 Output Total 962 990 1184 900 Balance 354 1067 1428 564 680 Intake, IV 714 837 603 476 4913 Intake, Oral 240 1080 600 840 480 Number 2 Bowel Movements Output, Urine 624 761 5554 900 Oropharynx: Tonsils 4+, no longer kissing ,mild erythema Neck: Mild adenopathy, greater on the left, mildly tender, level II WBC 25, granulocytes 77 (down from 89) Assessment/Plan Assessment/Plan Assessment/Plan 1. Acute streptococcal tonsillitis, improved 2. Tonsil and adenoid hypertrophy with obstruction of the nasopharyngeal and oropharyngeal airway , improved 3. Acute sinusitis - right maxillary and bilateral ethmoid , improved 4. Reactive cervical adenitis, improved 5. Odynophagia-resolved 6. Dehydration- resolved 7. s/p Sepsis 8. Obstructive sleep apnea secondary to tonsil and adenoid hypertrophy - breathing improved overall patient continues to improve Plan 1. May transfer to general medicine floor 2. IV Unasyn 3 mg every 6 3. IV Decadron 4 mg every 8- please taper off Decadron 4. Afrin nasal spray 3 puffs each nostril twice a day 3 days 5. BiPAP tonight to help with the upper airway obstruction 6. Monitor WBC 7. Monitor for possible evolving abscess on the left tonsil- no evidence of evolving abscess 8. Regular diet as tolerated 9. May discharge home once WBC returns to normal 10. Oral antibioticsAugmentin 07696 days 11. Follow-up in my office in 2 weeks, at the end of antibiotic prescription Core Measures Venous Thromboembolism VTE Risk Factors Age>40 No Mechanical VTE Prophylaxis d/t N/A MechProphylax Ordered No VTE Pharm Prophylaxis d/t NA PharmProphylax ordered Core Measures Venous Thromboembolism VTE Risk Factors Age>40 No Mechanical VTE Prophylaxis d/t N/A MechProphylax Ordered No VTE Pharm Prophylaxis d/t NA PharmProphylax ordered Attending MD Review Statement Attending Statement Attending MD Statement: examined this patient, discuss w/resident/PA/SEED TESTER
[2017-06-10 06:34] VITALS: BP 122/84
--- NOTE | 2017-06-10 07:46 | PN- Housestaff ---
Subjective Follow-up For: 1. Sepsis from acute streptococcal peristonsaillar abscess 2. Tonsil and adenoid hypertrophy with obstruction of the nasopharyngeal and oropharyngeal airway 3. Acute sinusitis - right maxillary and bilateral ethmoid 4. Odynophagia - resolved 5. YE secondary to tonsil and adenoid hypertrophy Subjective: No acute events overnight. Eating and drinking. Slept without any issues. No pain. Review of Systems Constitutional: Reports: see HPI. Objective Last 24 Hrs of Vital Signs/I&O Vital Signs Date Time Temp Pulse Resp B/P B/P Pulse O2 O2 Flow FiO2 Mean Ox Delivery Rate 06/10 1420 98.4 85 18 112/82 100 06/10 0634 97.8 69 20 122/84 96 06/10 0259 68 93 06/10 0011 89 98 Intake & Output 06/10 1600 06/10 0800 06/10 0000 Intake Total 680 480 700 Output Total 250 Balance 680 230 700 Intake, IV 200 200 Intake, Oral 480 480 500 Output, Urine 250 Physical Exam General Appearance: Alert, Oriented X3, Cooperative HEENT: no lymphadenopathy, enlarged tonsils Cardiovascular: Regular Rate, Normal S1, Normal S2 Lungs: Clear to Auscultation, Normal Air Movement Abdomen: Normal Bowel Sounds, Soft, No Tenderness Vascular: 2+ radial pulses Assessment/Plan Assessment: 31-year-old morbidly obese male with no past medical history presents to the ER with chief complaint pain in his leg quite throughout that started about 2 weeks ago with worsening difficulty swallowing as well as sleeping found to have sepsis 2/2 to peritonsillar ascess Problem list: 1. Sepsis and acute hypoxemic repsiratory failure 2/2 acute streptococcal tonsillitis; resolved Patient met SIRS criteria with HR of 114 and WBC count of 28.9. He received 2L of IV normal saline @ rate of 100ml/hr. Aggresive fluid hydration was not done as the patient clinically did not look septic with no organ damage, normal Lactic acid level and also the blood pressure remained within normal range. 2. Tonsil and adenoid hypertrophy with obstruction of the nasopharyngeal and oropharyngeal airway 3. Acute sinusitis - right maxillary and bilateral ethmoid 4. Reactive cervical adenitis 5. Odynophagia - resolved 6. YE secondary to tonsil and adenoid hypertrophy -persistent 20k+ leukocytosis. most likely combination of steroids and infection. -Continue IV Unasyn 3000 mg every 6 hrs -Decrease dexamethasone to daily -ABG tonight @ 10pm -overnight pulse ox study -Maintain on aspiration precautions -Supplemental oxygen as needed to maintain saturations greater than 95% -Affrin Nasal [place] f/u final blood cultures - remains negative so far -Rapid [place] test negative, EBV IGM negative but positive IgG suggesting previous infection. -Follow-up ENT recommendations DVT prophylaxis; ALPS and S/C Lovenox Patient is Full code Problem List: 1. Peritonsillar abscess Pain Ratin Pain Location: none Pain Goal: Pain 4 or less Pain Plan: pain pathway Tomorrow's Labs & Rationales: cbc
[2017-06-10 08:25] LABS: ABSOLUTE BASOPHIL COUNT 0.1 /CUMM (0.0-0.2); ABSOLUTE EOSINOPHIL COUNT 0 /CUMM (0.0-0.7); ABSOLUTE GRANULOCYTE CT 17.2 /CUMM (1.4-6.5); ABSOLUTE LYMPH COUNT 5.2 /CUMM (1.2-3.4); ABSOLUTE MONOCYTE COUNT 2.1 /CUMM (0.10-0.60); BASOPHIL % 0.5 % (0.0-2.0); EOSINOPHIL % 0.1 % (0-5); GRANULOCYTE % 69.6 % (42.2-75.2); HEMATOCRIT 40.3 % (42-52); MEAN CORPUSCULAR HGB 26.6 PG (27.0-31.0); MEAN CORPUSCULAR HGB CONC 32.7 G/DL (33.0-37.0); MEAN CORPUSCULAR VOLUME 81.3 FL (80.0-94.0); MEAN PLATELET VOLUME 7.9 FL (7.4-10.4); PLATELET COUNT 561 /CUMM (130-400); RBC DISTRIBUTION WIDTH 16.5 % (11.5-14.5); RED BLOOD CELL CT 4.95 /CUMM (4.70-6.10); WHITE BLOOD CELL COUNT 24.7 /CUMM (4.8-10.8)
--- NOTE | 2017-06-10 11:00 | Discharge Summary ---
Visit Information Visit Dates Admission Date: 06/07/17 Discharge Date: 06/11/17 Hospital Course Course Attending Physician: Kandy Kam MD Primary Care Physician: NO PCP Referred to Dr. Brantley Hospital Course: 31-year-old male with no past medical history presents to the ER with chief complaint pain in his leg quite throughout that started about 2 weeks ago with worsening difficulty swallowing as well as sleeping. Vitals at the time of admission blood pressure 139/71, respiratory rate of 20, T -max of 99 tachycardic to 114 with an O2 saturation of 85 on room air. Labs pertinent for leukocytosis with a white blood cell count of 28,900, H&H 14.3/44.1 and MCV of 80.5 with a platelet count of 473,000. Serum chemistries reveal a sodium of 139, potassium 4.4, bicarb of 28, anion gap of 15, BUN 8 with a creatinine of 0.6. LFTs unremarkable with an AST/ALT of 70/26, alk phos of 98. Infectious mono titer was negative. CT of the neck showed enlarged palatine tonsils, more prominent on the left with developing abscess in the left palatine tonsil with significant bilateral cervical lymphadenopathy left more so than right. There is also complete opacification of the right maxillary sinus with thickened sinus díaz consistent with chronic sinus disease. In the ER patient received 15 mg of IV Decadron 1 and ampicillin 3000 mg IV 1. Patient was initially admitted to ICU and later transferred to general medicine for the management of following issues 1. Sepsis and acute hypoxemic repsiratory failure 2/2 acute streptococcal tonsillitis 2. Tonsil and adenoid hypertrophy with obstruction of the nasopharyngeal and oropharyngeal airway 3. Acute sinusitis - right maxillary and bilateral ethmoid 4. Reactive cervical adenitis 5. Odynophagia 6. YE secondary to tonsil and adenoid hypertrophy Patient initally met SIRS criteria with HR of 114 and WBC count of 28.9 at the time of admission. He received 2L of IV normal saline @ rate of 100ml/hr. Aggresive fluid hydration was not done as the patient clinically did not look septic with no end organ damage, normal Lactic acid level and also the blood pressure remained within normal range. ENT consult was obtained, and bedside laryngoscopy was performed showing enlarged adenoids and enlarged kissing tonsils. Patient was started on IV Unasyn, Afrin nasal spray and Decadron 4 mg every 8 which was tapered gradually. He was also started on CPAP to assist in breathing. Patient remained afebrile, with significant improvement in his symptoms but white blood cell count remained high likely secondary to the steroid use. Blood cultures were obtained which remained negative. Monospot test and EBV IgM antibodies were negative with positive EBV IgG antibody suggesting previous infection. Patient was sent home on Augmentin on the to complete a total 14 day course of antibiotics and outpatient follow-up with ENT for eventual tonsillectomy. Patient was also advised to follow-up with pulmonology (Dr. Chase) for a sleep study to rule out obstructive sleep apnea. He was also given a referral to Dr. Brantley as a new PCP. Allergies: Coded Allergies: No Known Allergies (06/07/17) Significant Procedures: XRY-PORTABLE CHEST XRAY FINDINGS: EKG leads overlie the chest. The cardiomediastinal silhouette is borderline enlarged. Low lung volumes are seen with crowding of the bronchovascular lung markings in the right lung base. No focal consolidation, effusion or pneumothorax is seen. Bony structures are unremarkable. IMPRESSION: Low lung volumes. Borderline cardiomegaly. No acute pulmonary process. CT NECK W IV CONTRAST FINDINGS: There is asymmetric fullness of the palatine tonsils, larger on the left. There is an area of relative low attenuation in the left tonsil which measures 1.6 x 1.6 x 2.1 cm, which may be consistent with an evolving abscess. There is mild distortion of the airway in the oropharynx. There are multiple enlarged lymph nodes in the neck bilaterally, most prominent on the left in the level IIA/IIB region measuring up to 3 cm. The parotid glands are homogeneous in attenuation. The submandibular glands are normal. No The laryngeal structures are normal. The parapharyngeal fat is preserved. There is normal opacification of the vascular structures. No other extra mucosal soft tissue mass or fluid collection is seen. No retropharyngeal fluid collection is seen. The thyroid gland is normal. The superior mediastinum is unremarkable. The lung apices are clear. The mastoid air cells are well-aerated. There is complete opacification of the right maxillary sinus with thickened sinuses díaz consistent with chronic disease. There is also mucoperiosteal thickening in the bilateral ethmoid sinuses. The temporomandibular joints are normal. No periapical disease is identified. There are no acute osseous abnormalities. The imaged portions of the brain parenchyma are unremarkable. IMPRESSION: 1. The palatine tonsils are enlarged, more prominent on the left. There may be a developing abscess in the left palatine tonsil. In addition there is significant bilateral cervical lymphadenopathy, most prominent on the left. 2. There is complete opacification of the right maxillary sinus with thickened sinus díaz, consistent with chronic sinus disease. Disposition Summary Disposition Principal Diagnosis: Sepsis from acute streptococcal tonsillitis Additional Diagnosis: - Tonsil and adenoid hypertrophy with obstruction of the nasopharyngeal and oropharyngeal airway - Acute sinusitis - right maxillary and bilateral ethmoid - Reactive cervical adenitis - Odynophagia - YE secondary to tonsil and adenoid hypertrophy Discharge Disposition: home or self care Discharge Instructions General Discharge Information Code Status: Full Code Patient's Diet: Regular Patient's Activity: As tolerated Follow-Up Instructions/Appts: Please follow-up with therapist. A week after discharge. Please follow-up with the ENT doctor within 1-2 weeks after discharge. We will need a sleep study as an outpatient to rule out obstructive sleep apnea, please follow-up with your mining detail draftsperson within 1-2 weeks after discharge Medications at Discharge Discharge Medications: Start taking the following new medications: Amoxicillin/Potassium Clav (Augmentin 875-125 Tablet) 875 MG-125 MG TABLET 1 Tablet ORAL TWICE DAILY Qty = 20 No Refills Comments: NOT GIVEN Copies To: Karon SINGH,Karon; Davina Lagunas MD, MD, Roman
[2017-06-10] MEDS ORDERED: AUGMENTIN 875-1 EACH PO (11:01)
--- NOTE | 2017-06-10 11:06 | Patient Discharge Instructions ---
Discharge Instructions General Discharge Information You were seen/treated for: 1. Sepsis from acute streptococcal tonsillitis 2. Tonsil and adenoid hypertrophy with obstruction of the nasopharyngeal and oropharyngeal airway 3. Acute sinusitis - right maxillary and bilateral ethmoid 4. Odynophagia - resolved 5. YE secondary to tonsil and adenoid hypertrophy Watch for these problems: Please return to the ER in case of any difficulty breathing, shortness of breath , difficulty swallowing, fever/chills or sore throat. Special Instructions: Please follow-up with your ENT doctor within 1-2 weeks after discharge. With follow-up with your PCP within a week after discharge. We have given you a referral to Dr. Brantley. Please follow-up with your new weatherization coordinator Dr. Chase within a week after discharge, you will need an outpatient sleep study to rule out obstructive sleep apnea which can be arranged at that time. Diet Continue normal diet: Yes Activity Full Activity/No Limits: Yes Acute Coronary Syndrome Inclusion Criteria At DC or during hospital stay patient has or had the following: ACS DIAGNOSIS No Discharge Core Measures Meds if any: Prescribed or Continued at Discharge Meds if any: NOT Prescribed or Continued at Discharge Congestive Heart Failure Inclusion Criteria At DC or during hospital stay patient has or had the following: CHF DIAGNOSIS No Discharge Core Measures Meds if any: Prescribed or Continued at Discharge Meds if any: NOT Prescribed or Continued at Discharge Cerebrovascular accident Inclusion Criteria At DC or during hospital stay patient has or had the following: CVA/TIA Diagnosis No Discharge Core Measures Meds if any: Prescribed or Continued at Discharge Meds if any: NOT Prescribed or Continued at Discharge Venous thromboembolism Inclusion Criteria VTE Diagnosis No VTE Type NONE VTE Confirmed by (Test) NONE Discharge Core Measures - Per Current guidelines, there needs to be overlap - treatment for the first 5 days of Warfarin therapy. - If discharged on Warfarin prior to 5 days of - overlap therapy, the patient will need to be - assessed for post discharge needs including - *Post discharge parental anticoagulation - *Warfarin and/or parental anticoagulation education - *Follow up date to check INR post discharge At least 5 days overlap therapy as Inpatient No Meds if any: Prescribed or Continued at Discharge Note: Overlap Therapy is Warfarin and Anticoagulant Meds if any: NOT Prescribed or Continued at Discharge
--- NOTE | 2017-06-10 14:05 | PN- Student ---
Subjective Subjective: Peter Crane is a 31 y/o morbidly obese male smoker with no past medical history presents to the ER complaining of swelling and pain in his neck that has been making it difficult to swallow and sleep. According to the patient he first developed a sore throat which was associated with purulent discharge on his tonsillar area on May 07. He said that his symptoms subsided a couple of days later without taking any medications or seeing a primary care physician. It was not until last Wednesday that he started to experience worsening sore throat, difficulty swallowing (solids and liquids) and pain on swallowing. He also started to notice swelling on the left side of his neck which progressively got worse Wednesday into Wednesday. He does endorse mild pooling of saliva in his mouth. He denies any fevers, chills. He states that he took Motrin but with little effect. He does endorse having his daughter who was sick with an upper respiratory tract infection a few weeks ago. Patient denies any chest pain, shortness of breath, nausea, vomiting, diarrhea, constipation, abdominal pain, headache, any sinusitis-like symptoms. On June 07 Chest X-ray was done and showed Low lung volumes, Borderline cardiomegaly and No acute pulmonary process. Neck CT was also done and showed enlarged palatine tonsils, more prominent on the left, that there may be a developing abscess in the left palatine tonsil. In addition there was significant bilateral cervical lymphadenopathy, most prominent on the left. Complete opacification of the right maxillary sinus with thickened sinus díaz were also seen, consistent with chronic sinus disease. ENT performed a fiberoptic laryngoscopy that showed adenoid hypertrophy with complete obstruction of the nasopharynx so the patient was sent to ICU. His quick strep throat came back positive for beta strep group A, negative infectious mono titer, Shreyas-Hernandez virus IgM antibody, IgG antibody pending. He was started on appropriate antibiotics (Unasyn 3 g every 6) and Decadron 4 mg every 8 hours. Odynophagia resolved so he was transferred to [facility]. Today patient states that he is feeling "awesome", that he was able to catch his sleep and that is eating well. ROS: See HPI Objective Objective: Vital Signs Date Time Temp Pulse Resp B/P B/P Pulse O2 O2 Flow FiO2 Mean Ox Delivery Rate 06/10 1420 98.4 85 18 112/82 100 06/10 0634 97.8 69 20 122/84 96 06/10 0259 68 93 06/10 0011 89 98 06/09 1600 98 Room Air ED Intake and Output 06/10 0000 06/09 1200 Intake Total 1620 954 Output Total 600 Balance 1620 354 Intake, IV 400 714 Intake, Oral 1220 240 Output, Urine 600 Laboratory Tests 06/10 0804 Chemistry Sodium (137 - 145 mmol/L) 141 Potassium (3.5 - 5.1 mmol/L) 4.5 Chloride (98 - 107 mmol/L) 102 Carbon Dioxide (22 - 30 mmol/L) 27 Anion Gap (5 - 16) 13 BUN (9 - 20 mg/dL) 19 Creatinine (0.7 - 1.2 mg/dL) 0.7 Estimated GFR (>60 ml/min) > 60 BUN/Creatinine Ratio (7 - 25 %) 27.1 H Hematology CBC w Diff MAN DIFF ORDERED WBC (4.8 - 10.8 /CUMM) 24.7 H RBC (4.70 - 6.10 /CUMM) 4.95 Hgb (14.0 - 18.0 G/DL) 13.1 L Hct (42 - 52 %) 40.3 L MCV (80.0 - 94.0 FL) 81.3 MCH (27.0 - 31.0 PG) 26.6 L MCHC (33.0 - 37.0 G/DL) 32.7 L RDW (11.5 - 14.5 %) 16.5 H Plt Count (130 - 400 /CUMM) 561 H MPV (7.4 - 10.4 FL) 7.9 Gran % (42.2 - 75.2 %) 69.6 Lymphocytes % (20.5 - 51.1 %) 21.1 Monocytes % (1.7 - 9.3 %) 8.7 Eosinophils % (0 - 5 %) 0.1 Basophils % (0.0 - 2.0 %) 0.5 Absolute Granulocytes (1.4 - 6.5 /CUMM) 17.2 H Segmented Neutrophils (42.2 - 75.2 %) 60 Band Neutrophils (0.0 - 5.0 %) 4 Absolute Lymphocytes (1.2 - 3.4 /CUMM) 5.2 H Lymphocytes (20.5 - 51.1 %) 25 Monocytes (1.7 - 9.3 %) 9 Absolute Monocytes (0.10 - 0.60 /CUMM) 2.1 H Absolute Eosinophils (0.0 - 0.7 /CUMM) 0 Absolute Basophils (0.0 - 0.2 /CUMM) 0.1 Metamyelocytes (0.0 - 1.0 %) 1 Myelocytes (0 - 0 %) 1 H Platelet Estimate (ADEQUATE) INCREASED Normocytic RBCs VERIFIED Normochromic RBCs VERIFIED Results Results: Laboratory Tests 06/10/17 0804: Anion Gap 13, Estimated GFR > 60, BUN/Creatinine Ratio 27.1 H, CBC w Diff MAN DIFF ORDERED, RBC 4.95, MCV 81.3, MCH 26.6 L, MCHC 32.7 L, RDW 16.5 H, MPV 7.9, Gran % 69.6, Lymphocytes % 21.1, Monocytes % 8.7, Eosinophils % 0.1, Basophils % 0.5, Absolute Granulocytes 17.2 H, Segmented Neutrophils 60, Band Neutrophils 4, Absolute Lymphocytes 5.2 H, Lymphocytes 25, Monocytes 9, Absolute Monocytes 2.1 H, Absolute Eosinophils 0, Absolute Basophils 0.1, Metamyelocytes 1, Myelocytes 1 H, Platelet Estimate INCREASED, Normocytic RBCs VERIFIED, Normochromic RBCs VERIFIED 06/09/17 0630: Anion Gap 11, Estimated GFR > 60, Glucose 136 H, Calcium 9.6, Phosphorus 4.3, Magnesium 2.3, Total Bilirubin 0.4, AST 23, ALT 40, Albumin 3.6, CBC w Diff NO MAN DIFF REQ, RBC 5.03, MCV 81.3, MCH 26.3 L, MCHC 32.3 L, RDW 16.5 H, MPV 8.2, Gran % 77.2 H, Lymphocytes % 13.0 L, Monocytes % 9.4 H, Eosinophils % 0, Basophils % 0.4, Absolute Granulocytes 19.8 H, Absolute Lymphocytes 3.3, Absolute Monocytes 2.4 H, Absolute Eosinophils 0, Absolute Basophils 0.1 06/08/17 0320: Troponin I < 0.01 06/08/17 032: Anion Gap 14, Estimated GFR > 60, BUN/Creatinine Ratio 26.0 H, CBC w Diff MAN DIFF ORDERED, RBC 5.48, MCV 81.3, MCH 25.5 L, MCHC 31.3 L, RDW 15.9 H, MPV 8.2, Gran % 89.9 H, Lymphocytes % 7.5 L, Monocytes % 2.5, Eosinophils % 0.1, Basophils % 0, Absolute Granulocytes 23.1 H, Segmented Neutrophils 78 H, Band Neutrophils 6 H, Absolute Lymphocytes 1.9, Lymphocytes 10 L, Monocytes 4, Absolute Monocytes 0.6, Absolute Eosinophils 0, Absolute Basophils 0, Metamyelocytes 2 H, Platelet Estimate ADEQUATE, Normocytic RBCs VERIFIED, Normochromic RBCs VERIFIED 06/07/17 1600: Lactic Acid 0.9 Microbiology 06/07 1615 BLOOD: Blood Culture - RES Assessment/Plan Assessment: Peter Crane is a 31 y/o morbidly obese male smoker with no past medical history presents to the ER complaining of swelling and pain in his neck that has been making it difficult to swallow and sleep. He also started to notice swelling on the left side of his neck which progressively got worse Wednesday into Wednesday. He does endorse mild pooling of saliva in his mouth. He denies any fevers, chills. On June 07 Chest X-ray was done and showed Low lung volumes, Borderline cardiomegaly and No acute pulmonary process. Neck CT was also done and showed enlarged palatine tonsils, more prominent on the left, that there may be a developing abscess in the left palatine tonsil. In addition there was significant bilateral cervical lymphadenopathy, most prominent on the left. Complete opacification of the right maxillary sinus with thickened sinus díaz were also seen, consistent with chronic sinus disease. ENT performed a fiberoptic laryngoscopy that showed adenoid hypertrophy with complete obstruction of the nasopharynx so the patient was sent to ICU. His quick strep throat came back positive for beta strep group A. His odynophagia has resolved and he has been transferred to [facility]. Problem list: 1. Leukocytosis - Monitor WBC - Continue abx, change to oral abx - Continue steroids, taper 2. Obesity - Weight loss teaching - Possible YE (continue CPAP? sleep study?) 3. Smoking - Smoking cessation teaching 4. Cardiomegaly - Consider cardiology consult as outpatient
--- NOTE | 2017-06-10 14:05 | PN- Att Addend ---
Attending Addendum Attending Brief Note Patient seen and examined, doing overall better. Denies any difficulty swallowing. No difficulty breating. Pt remains on IV abx, steroids. Vital Signs Date Time Temp Pulse Resp B/P B/P Pulse O2 O2 Flow FiO2 Mean Ox Delivery Rate 06/10 0634 97.8 69 20 122/84 96 06/10 0259 68 93 06/10 0011 89 98 06/09 1600 98 Room Air on exam; aox3, nad. heent; + tonsilar enlargement b/l. cv; s1,s2, rrr resp; clear abd; soft, nt, bs+ ext; no edema Laboratory Tests 06/10 0804 Chemistry Sodium (137 - 145 mmol/L) 141 Potassium (3.5 - 5.1 mmol/L) 4.5 Chloride (98 - 107 mmol/L) 102 Carbon Dioxide (22 - 30 mmol/L) 27 Anion Gap (5 - 16) 13 BUN (9 - 20 mg/dL) 19 Creatinine (0.7 - 1.2 mg/dL) 0.7 Estimated GFR (>60 ml/min) > 60 BUN/Creatinine Ratio (7 - 25 %) 27.1 H Hematology CBC w Diff MAN DIFF ORDERED WBC (4.8 - 10.8 /CUMM) 24.7 H RBC (4.70 - 6.10 /CUMM) 4.95 Hgb (14.0 - 18.0 G/DL) 13.1 L Hct (42 - 52 %) 40.3 L MCV (80.0 - 94.0 FL) 81.3 MCH (27.0 - 31.0 PG) 26.6 L MCHC (33.0 - 37.0 G/DL) 32.7 L RDW (11.5 - 14.5 %) 16.5 H Plt Count (130 - 400 /CUMM) 561 H MPV (7.4 - 10.4 FL) 7.9 Gran % (42.2 - 75.2 %) 69.6 Lymphocytes % (20.5 - 51.1 %) 21.1 Monocytes % (1.7 - 9.3 %) 8.7 Eosinophils % (0 - 5 %) 0.1 Basophils % (0.0 - 2.0 %) 0.5 Absolute Granulocytes (1.4 - 6.5 /CUMM) 17.2 H Segmented Neutrophils (42.2 - 75.2 %) 60 Band Neutrophils (0.0 - 5.0 %) 4 Absolute Lymphocytes (1.2 - 3.4 /CUMM) 5.2 H Lymphocytes (20.5 - 51.1 %) 25 Monocytes (1.7 - 9.3 %) 9 Absolute Monocytes (0.10 - 0.60 /CUMM) 2.1 H Absolute Eosinophils (0.0 - 0.7 /CUMM) 0 Absolute Basophils (0.0 - 0.2 /CUMM) 0.1 Metamyelocytes (0.0 - 1.0 %) 1 Myelocytes (0 - 0 %) 1 H Platelet Estimate (ADEQUATE) INCREASED Normocytic RBCs VERIFIED Normochromic RBCs VERIFIED A/P: 31-year-old male with no significant past history who was admitted to ICU on June 07 with sepsis, acute hypoxic respiratory failure secondary to peritonsillar abscess, streptococcal tonsillitis and sinusitis. Currently on IV steroids and IV antibiotics. Still has significant leukocytosis. Overall improving in general. We'll keep on IV antibiotics IV steroids in the next 4 hours and monitor for WBC. Once there is a decline in the WBC count, patient be switched to oral antibiotics and steroids and likely discharge home to complete a 2 week course. Steroids will be tapered quickly. Patient has been followed by ENT. Continue to use CPAP at night for comfort. Patient will need outpatient sleep study.
[2017-06-10 14:20] VITALS: BP 112/82
[2017-06-10 22:04] VITALS: BP 116/80
[2017-06-11 07:13] VITALS: BP 124/76
[2017-06-11 08:19] LABS: ABSOLUTE BASOPHIL COUNT 0.1 /CUMM (0.0-0.2); ABSOLUTE EOSINOPHIL COUNT 0.1 /CUMM (0.0-0.7); BASOPHIL % 0.3 % (0.0-2.0); EOSINOPHIL % 0.3 % (0-5); MEAN PLATELET VOLUME 8.1 FL (7.4-10.4); RED BLOOD CELL CT 5.38 /CUMM (4.70-6.10)
[2017-06-11 08:30] LABS: ABSOLUTE GRANULOCYTE CT 21.1 /CUMM (1.4-6.5); ABSOLUTE LYMPH COUNT 9.2 /CUMM (1.2-3.4); ABSOLUTE MONOCYTE COUNT 2.7 /CUMM (0.10-0.60); GRANULOCYTE % 63.5 % (42.2-75.2); HEMATOCRIT 43.8 % (42-52); MEAN CORPUSCULAR HGB 26.3 PG (27.0-31.0); MEAN CORPUSCULAR HGB CONC 32.2 G/DL (33.0-37.0); MEAN CORPUSCULAR VOLUME 81.6 FL (80.0-94.0); PLATELET COUNT 632 /CUMM (130-400); RBC DISTRIBUTION WIDTH 16.1 % (11.5-14.5)
[2017-06-11 08:38] LABS: WHITE BLOOD CELL COUNT 33.2 /CUMM (4.8-10.8)
--- NOTE | 2017-06-11 09:11 | PN- Housestaff ---
Subjective Follow-up For: 1. Sepsis from acute streptococcal peristonsaillar abscess 2. Tonsil and adenoid hypertrophy with obstruction of the nasopharyngeal and oropharyngeal airway 3. Acute sinusitis - right maxillary and bilateral ethmoid 4. Odynophagia - resolved 5. YE secondary to tonsil and adenoid hypertrophy Subjective: No acute events overnight. States he has not had any pain or fevers. No issues with talking or eating or drinking. Asking to be discharged. Review of Systems Constitutional: Reports: see HPI. Objective Last 24 Hrs of Vital Signs/I&O Vital Signs Date Time Temp Pulse Resp B/P B/P Pulse O2 O2 Flow FiO2 Mean Ox Delivery Rate 06/11 0713 98.0 65 20 124/76 96 06/11 0138 64 94 06/10 2204 98.0 85 20 116/80 96 Room Air Intake & Output 06/11 1600 06/11 0800 06/11 0000 Intake Total 240 100 Output Total Balance 240 100 Intake, IV 100 Intake, Oral 240 Physical Exam General Appearance: Alert, Oriented X3, Cooperative HEENT: enlarged tonsils Lungs: Clear to Auscultation, Normal Air Movement Abdomen: Normal Bowel Sounds, Soft, No Tenderness Extremities: 2+ radial Current Medications: Current Medications Sig/[place] Start time Last Medication Dose Route Stop Time Status Admin Acetaminophen 1,000 MG Q6P PRN 06/07 1045 DCD N/A 1 UNIT IV Ampicillin Sodium/ 3,000 MG Q6H 06/07 2200 DCD 06/11 Sulbactam Sodium IV 1124 Sodium Chloride 100 ML Dexamethasone 4 MG DAILY 06/11 09 DC Dextrose/Water 50 ML IV Dexamethasone 2 MG DAILY 06/11 0900 DC 06/11 Dextrose/Water 50 ML IV 06/11 0930 1028 Oxymetazoline HCl 2 SPRAY BID 06/07 2100 DCD 06/11 POLO 0815 Patient Medication 1 ED ONE 06/11 0000 NR Teaching ED 06/11 2359 Patient Medication 1 ED ONE ONE 06/10 1945 NE Teaching ED 06/10 194 Last 24 Hrs of Lab/Johnny Results Last 24 Hrs of Labs/Mics: Laboratory Tests 06/11/17 1007: CBC w Diff NO MAN DIFF REQ, RBC 5.13, MCV 81.9, MCH 26.2 L, MCHC 32.0 L, RDW 16.3 H, MPV 8.3, Gran % 65.9, Lymphocytes % 28.2, Monocytes % 5.4, Eosinophils % 0.3, Basophils % 0.2, Absolute Granulocytes 19.3 H, Absolute Lymphocytes 8.3 H, Absolute Monocytes 1.6 H, Absolute Eosinophils 0.1, Absolute Basophils 0.1 06/11/17 0735: CBC w Diff MAN DIFF ORDERED, RBC 5.38, MCV 81.6, MCH 26.3 L, MCHC 32.2 L, RDW 16.1 H, MPV 8.1, Gran % 63.5, Lymphocytes % 27.6, Monocytes % 8.3, Eosinophils % 0.3, Basophils % 0.3, Absolute Granulocytes 21.1 H, Absolute Lymphocytes 9.2 H, Absolute Monocytes 2.7 H, Absolute Eosinophils 0.1, Absolute Basophils 0.1, Platelet Estimate INCREASED, Normocytic RBCs VERIFIED, Normochromic RBCs VERIFIED Assessment/Plan Assessment: 31-year-old morbidly obese male with no past medical history presents to the ER with chief complaint pain in his leg quite throughout that started about 2 weeks ago with worsening difficulty swallowing as well as sleeping found to have sepsis 2/2 to peritonsillar ascess Problem list: 1. Sepsis and acute hypoxemic repsiratory failure 2/2 acute streptococcal tonsillitis; resolved Patient met SIRS criteria with HR of 114 and WBC count of 28.9. He received 2L of IV normal saline @ rate of 100ml/hr. Aggresive fluid hydration was not done as the patient clinically did not look septic with no organ damage, normal Lactic acid level and also the blood pressure remained within normal range. 2. Tonsil and adenoid hypertrophy with obstruction of the nasopharyngeal and oropharyngeal airway 3. Acute sinusitis - right maxillary and bilateral ethmoid 4. Reactive cervical adenitis 5. Odynophagia - resolved 6. YE secondary to tonsil and adenoid hypertrophy -Patient will be discharged today -30k+ leukocytosis. Spoke to infectious disease who that this rise was due to steroids -dc IV Unasyn 3000 mg every 6 hrs. discharge with Augmentin 2 completed 2 week total course of antibiotics -Advised to follow-up with pulmonology outpatient for sleep study Given referral to new PCP Dr. Barraza as patient does not have a PCP -Tapered off steroids -Maintain on aspiration precautions -Supplemental oxygen as needed to maintain saturations greater than 95% -Affrin Nasal [place] f/u final blood cultures - remains negative so far -Rapid [place] test negative, EBV IGM negative but positive IgG suggesting previous infection. -Follow-up ENT recommendations DVT prophylaxis; ALPS and S/C Lovenox Patient is Full code Problem List: 1. Obstructive sleep apnea 2. Tonsillitis 3. Adenoiditis Pain Ratin Pain Location: none Pain Goal: Pain 4 or less Pain Plan: pain pathway Tomorrow's Labs & Rationales: none
--- NOTE | 2017-06-11 09:45 | PN- Student ---
Subjective Subjective: Patient states that he feels fine, he wants to go home. He took out his CPAP yesterday night and said he didn't have any trouble breathing. ROS: See HPI Objective Objective: Vital Signs Date Time Temp Pulse Resp B/P B/P Pulse O2 O2 Flow FiO2 Mean Ox Delivery Rate 06/11 0713 98.0 65 20 124/76 96 06/11 0138 64 94 06/10 2204 98.0 85 20 116/80 96 Room Air 06/10 1600 94 Room Air 06/10 1420 98.4 85 18 112/82 100 ED Intake and Output 06/11 0000 06/10 1200 Intake Total 780 480 Output Total 250 Balance 780 230 Intake, IV 300 Intake, Oral 480 480 Output, Urine 250 Results Results: Laboratory Tests 06/11/17 0735: CBC w Diff MAN DIFF ORDERED, RBC 5.38, MCV 81.6, MCH 26.3 L, MCHC 32.2 L, RDW 16.1 H, MPV 8.1, Gran % 63.5, Lymphocytes % 27.6, Monocytes % 8.3, Eosinophils % 0.3, Basophils % 0.3, Absolute Granulocytes 21.1 H, Absolute Lymphocytes 9.2 H, Absolute Monocytes 2.7 H, Absolute Eosinophils 0.1, Absolute Basophils 0.1, Platelet Estimate INCREASED, Normocytic RBCs VERIFIED, Normochromic RBCs VERIFIED 06/10/17 0804: Anion Gap 13, Estimated GFR > 60, BUN/Creatinine Ratio 27.1 H, CBC w Diff MAN DIFF ORDERED, RBC 4.95, MCV 81.3, MCH 26.6 L, MCHC 32.7 L, RDW 16.5 H, MPV 7.9, Gran % 69.6, Lymphocytes % 21.1, Monocytes % 8.7, Eosinophils % 0.1, Basophils % 0.5, Absolute Granulocytes 17.2 H, Segmented Neutrophils 60, Band Neutrophils 4, Absolute Lymphocytes 5.2 H, Lymphocytes 25, Monocytes 9, Absolute Monocytes 2.1 H, Absolute Eosinophils 0, Absolute Basophils 0.1, Metamyelocytes 1, Myelocytes 1 H, Platelet Estimate INCREASED, Normocytic RBCs VERIFIED, Normochromic RBCs VERIFIED 06/09/17 0630: Anion Gap 11, Estimated GFR > 60, Glucose 136 H, Calcium 9.6, Phosphorus 4.3, Magnesium 2.3, Total Bilirubin 0.4, AST 23, ALT 40, Albumin 3.6, CBC w Diff NO MAN DIFF REQ, RBC 5.03, MCV 81.3, MCH 26.3 L, MCHC 32.3 L, RDW 16.5 H, MPV 8.2, Gran % 77.2 H, Lymphocytes % 13.0 L, Monocytes % 9.4 H, Eosinophils % 0, Basophils % 0.4, Absolute Granulocytes 19.8 H, Absolute Lymphocytes 3.3, Absolute Monocytes 2.4 H, Absolute Eosinophils 0, Absolute Basophils 0.1 Patient's neck doesn't look swollen. His breath sounds are vesicular. Assessment/Plan Assessment: Peter Crane is a 31 y/o morbidly obese male smoker with no past medical history presents to the ER complaining of swelling and pain in his neck that has been making it difficult to swallow and sleep. He also started to notice swelling on the left side of his neck which progressively got worse Wednesday into Wednesday. He does endorse mild pooling of saliva in his mouth. He denies any fevers, chills. On June 07 Chest X-ray was done and showed Low lung volumes, Borderline cardiomegaly and No acute pulmonary process. Neck CT was also done and showed enlarged palatine tonsils, more prominent on the left, that there may be a developing abscess in the left palatine tonsil. In addition there was significant bilateral cervical lymphadenopathy, most prominent on the left. Complete opacification of the right maxillary sinus with thickened sinus díaz were also seen, consistent with chronic sinus disease. ENT performed a fiberoptic laryngoscopy that showed adenoid hypertrophy with complete obstruction of the nasopharynx so the patient was sent to ICU. His quick strep throat came back positive for beta strep group A. Since then he has been on steroids and abx. Problem list: 1. Leukocytosis - Monitor WBC (repeat CBC today to confirm increased counts) - Continue abx, change to oral abx - Continue steroids, taper 2. Obesity - Weight loss teaching - Possible YE (continue CPAP? sleep study?) 3. Smoking - Smoking cessation teaching 4. Cardiomegaly - Consider cardiology consult as outpatient
[2017-06-11 11:30] LABS: ABSOLUTE BASOPHIL COUNT 0.1 /CUMM (0.0-0.2); ABSOLUTE EOSINOPHIL COUNT 0.1 /CUMM (0.0-0.7); ABSOLUTE GRANULOCYTE CT 19.3 /CUMM (1.4-6.5); ABSOLUTE LYMPH COUNT 8.3 /CUMM (1.2-3.4); ABSOLUTE MONOCYTE COUNT 1.6 /CUMM (0.10-0.60); BASOPHIL % 0.2 % (0.0-2.0); EOSINOPHIL % 0.3 % (0-5); GRANULOCYTE % 65.9 % (42.2-75.2); MEAN CORPUSCULAR HGB 26.2 PG (27.0-31.0); MEAN CORPUSCULAR VOLUME 81.9 FL (80.0-94.0); MEAN PLATELET VOLUME 8.3 FL (7.4-10.4); PLATELET COUNT 545 /CUMM (130-400); RBC DISTRIBUTION WIDTH 16.3 % (11.5-14.5); RED BLOOD CELL CT 5.13 /CUMM (4.70-6.10); WHITE BLOOD CELL COUNT 29.3 /CUMM (4.8-10.8)
[2017-06-11] MEDS ORDERED: AUGMENTIN 875-1 EACH PO ×2 (11:36→11:37)
--- NOTE | 2017-06-11 12:43 | PN- Att Addend ---
Attending Addendum Attending Brief Note Patient seen and examined, feels much better and wants to go home. Rise in WBC count this am but repeat was better. Denies any difficulty swallowing. No difficulty breathing, O2 sats are ok. Received last dose of steroids today. Stable for DC on oral abx. Will rfer to new PCP (pt has none) and ENT for follow up as outpatient.
== END 2017-06-11 12:30 | DRG 720 ==
LOC: ERH 05:43 → ERHI 09:26 → CRI 09:26 → CANRESERV 10:13 → ENRESERV 10:13 → EDBEDREQ 10:56 → ENRESERV 11:29 → ENTRNSPT 11:56 → ERHI 12:29 → EDTRNSPT 12:31 → EDTRNSPTSTS 12:31 → CMPTRNSPT 12:36 → CRI 12:38 → ENTRNSPT 06-09 22:08 → EDTRNSPT 06-09 22:27 → EDTRNSPTSTS 06-09 22:27 → 2NB 06-09 22:30 → CMPTRNSPT 06-09 22:42 → 2NB 06-10 07:37 → ENPENDDIS 06-11 11:56 → 2NB 06-11 12:30
PROVIDERS: Emergency Medicine; Internal Medicine; Internal Medicine Infectious Disease
PROC: 5A09457 Assistance with Respiratory Ventilation, 24-96 Consecutive Hours, Continuous Positive Airway Pressure (ICD-10-PCS; principal; 2017-06-08)
DX: A40.9 Streptococcal sepsis, unspecified (principal); J96.01 Acute respiratory failure with hypoxia; E66.01 Morbid (severe) obesity due to excess calories; Z68.43 Body mass index [BMI] 50.0-59.9, adult; R13.10 Dysphagia, unspecified; J03.00 Acute streptococcal tonsillitis, unspecified; J35.2 Hypertrophy of adenoids; J01.20 Acute ethmoidal sinusitis, unspecified; G47.33 Obstructive sleep apnea (adult) (pediatric); E86.0 Dehydration; I88.9 Nonspecific lymphadenitis, unspecified; F17.210 Nicotine dependence, cigarettes, uncomplicated; B95.0 Streptococcus, group A, as the cause of diseases classified elsewhere; I51.7 Cardiomegaly
CPT/HCPCS: 2NSBP; CCU; 36415; 36592; 71045; 82436; 87040; 93005; 93010; 96374; 96375; J0131; J1100; J1644; J7060